=== PATIENT | female | born 1945 | race Caucasian/White ===

== ENCOUNTER 2016-06-27 21:46 | Inpatient (IN) | payer OTHER ==
[2016-06-27 21:57] VITALS: BMI 32.5
--- NOTE | 2016-06-27 22:29 | PDOC ---
History of Present Illness - General History Source: Patient, Old Records Exam Limitations: No Limitations - History of Present Illness Initial Comments: 06/28/16 00:32 The patient is a 71 year old female with past medical history of hypertension, hyperlipidemia, breast cancer (in remission), bowel obstruction, ovarian cysts s /p hysterectomy and hernia repair who presents to the ED for complaints of abdominal pain which began around 4pm yesterday afternoon. The patient locates the pain to her periumbilical area. She states that it is an intermittent cramping sensation. The patient also notes one episode of nonbloody, nonbilious vomiting before arrival to the ED. She reports normal bowel movements and the last bowel movement was this morning. The patient also notes that she experienced a similar episode of symptoms in 2014 where she was treated in the ED for. This episode was noted to be stomach spasms. The patient denies any recent illness, fever, chills, diarrhea, melena, hematochezia cough, shortness of breath, chest pain, or urinary symptoms. PCP: Carlo Garcia <Jane Baumann - Last Filed: 06/28/16 03:26> <Mario Marrero - Last Filed: 06/29/16 02:14> - General Chief Complaint: Pain Stated Complaint: ABD PAIN/VOMITING Time Seen by Provider: 06/27/16 22:28 Past History <Jane Baumann - Last Filed: 06/28/16 03:26> - Past Medical History Anemia: No Cancer: Yes (left breast, in remission) GI Disorders: Yes (HERNIAS, BLOCKAGE.) Hypercholesterolemia: Yes - Surgical History Abdominal Surgery: Yes - Immunization History Immunization Up to Date: Yes - Psycho/Social/Smoking Cessation Hx Anxiety: No Suicidal Ideation: No Smoking History: Never smoked Have you smoked in the past 12 months: No Information on smoking cessation initiated: No Hx Alcohol Use: No Drug/Substance Use Hx: No Substance Use Type: None <Mario Marrero - Last Filed: 06/29/16 02:14> - Past Medical History Allergies/Adverse Reactions: Allergies Allergy/AdvReac Type Severity Reaction Status Date / Time gemifloxacin mesylate Allergy Intermediate Rash Verified 03/02/15 13:13 [From Factive] peanut Allergy Intermediate numbness Verified 03/02/15 13:13 Penicillins Allergy Intermediate Rash Verified 03/02/15 13:13 Home Medications: Ambulatory Orders Anastrozole [Arimidex -] 1 mg PO DAILY 06/27/16 Aspirin [ASA -] 81 mg PO DAILY 06/27/16 Atorvastatin Ca [Lipitor] 40 mg PO HS 06/27/16 Calcium Carbonate/Vitamin D3 [Calcium 600 + Vit D Tablet] 1 each PO DAILY Cholecalciferol (Vitamin D3) [Vitamin D3] 1,000 mg PO DAILY 06/27/16 Multivit-Min/Iron/Folic/Lutein [Centrum Silver Women Tablet] 1 each PO DAILY Omeprazole Magnesium [Prilosec] 20.6 mg PO DAILY 06/27/16 Vit C/Vit E/Lutein/Min/[place]-3 [Ocuvite Softgel] 1 tab PO DAILY 06/27/16 Review of Systems - Review of Systems Able to Perform ROS?: Yes Comments:: 06/28/16 00:32 GENERAL/CONSTITUTIONAL: No fever or chills. No weakness. HEAD, EYES, EARS, NOSE AND THROAT: No change in vision. No ear pain or discharge. No sore throat. CARDIOVASCULAR: No chest pain or shortness of breath. RESPIRATORY: No cough, wheezing, or hemoptysis. GASTROINTESTINAL: Positive: abdominal pain, nausea, vomiting No diarrhea or constipation. GENITOURINARY: No dysuria, frequency, or change in urination. MUSCULOSKELETAL: No joint or muscle swelling or pain. No neck or back pain. SKIN: No rash NEUROLOGIC: No headache, vertigo, loss of consciousness, or change in strength/ sensation. ENDOCRINE: No increased thirst. No abnormal weight change. HEMATOLOGIC/LYMPHATIC: No anemia, easy bleeding, or history of blood clots. ALLERGIC/IMMUNOLOGIC: No hives or skin allergy. All Other Systems: Reviewed and Negative <Jane Baumann - Last Filed: 06/28/16 03:26> *Physical Exam - Vital Signs Last Vital Signs Temp Pulse Resp BP Pulse Ox 97.6 F 81 18 138/81 98 06/27/16 21:54 06/27/16 21:54 06/27/16 21:54 06/27/16 21:54 06/27/16 21:54 - Physical Exam Comments: 06/28/16 00:33 GENERAL: Awake, alert, and fully oriented, in no acute distress HEAD: No signs of trauma EYES: PERRLA, EOMI, sclera anicteric, conjunctiva clear ENT: Auricles normal inspection, hearing grossly normal, nares patent, oropharynx clear without exudates. Dry mucous membranes NECK: Normal ROM, supple, no lymphadenopathy, JVD, or masses LUNGS: Breath sounds equal, clear to auscultation bilaterally. No wheezes, and no crackles HEART: Regular rate and rhythm, normal S1 and S2, no murmurs, rubs or gallops ABDOMEN: Hypoactive bowel sounds. Mild distention, no significant discomfort, mild well healed surgical scar, no dehiscence. Soft, nontender. No guarding, no rebound. No masses EXTREMITIES: Normal range of motion, no edema. No clubbing or cyanosis. No cords, erythema, or tenderness NEUROLOGICAL: Cranial nerves II through XII grossly intact. Normal speech, normal gait SKIN: Warm, Dry, normal turgor, no rashes or lesions noted. <Jane Baumann - Last Filed: 06/28/16 03:26> - Vital Signs Last Vital Signs Temp Pulse Resp BP Pulse Ox 97.6 F 81 18 138/81 98 06/27/16 21:54 06/27/16 21:54 06/27/16 21:54 06/27/16 21:54 06/27/16 21:54 <Mario Marrero - Last Filed: 06/29/16 02:14> Heart Score/ECG Review - ECG Intrepretation Comment:: 06/28/16 00:54 ECG obtained at 23:53 normal sinus rhythm at 64 bpm, nonspecific st and t wave abnormality <Jane Baumann - Last Filed: 06/28/16 03:26> ED Treatment Course - LABORATORY CBC & Chemistry Diagram: 06/27/16 22:30 06/27/16 22:30 - ADDITIONAL ORDERS Additional order review: Laboratory Results 06/27/16 06/27/16 06/27/16 22:30 22:30 22:30 INR 1.08 Sodium 141 Potassium 4.2 Chloride 102 Carbon Dioxide 30 Anion Gap 9 BUN 11 Creatinine 1.0 Creat Clearance w eGFR 54.35 Random Glucose 166 H D Lactic Acid 1.951 Calcium 9.4 Phosphorus 3.6 Magnesium 2.1 Total Bilirubin 0.9 AST 21 ALT 24 Alkaline Phosphatase 65 Creatine Kinase 48 Troponin I < 0.02 B-Natriuretic Peptide 47.31 Total Protein 7.4 Albumin 4.0 Lipase 114 06/27/16 22:30 RBC 5.59 H MCV 65.5 L MCHC 32.1 RDW 16.5 H MPV 9.5 Neutrophils % 80.5 Lymphocytes % 12.0 D Monocytes % 5.7 Eosinophils % 1.0 D Basophils % 0.8 - RADIOLOGY Radiograph Interpretation: 06/28/16 02:12 EXAM: CT abdomen and pelvis with contrast IMAGES: 411 INDICATION: Abdominal pain DATE OF SERVICE: 2016-06-28 01:43:40.0 COMPARISON: none FINDINGS: Lung bases are clear other than mild dependent atelectasis. The visualized cardiac chambers are normal size and configuration. Normal liver, gallbladder, pancreas, spleen, adrenal glands and kidneys. There is a small bowel obstruction and moderate sized hilar hernia with small bowel dilated to 3.1 cm. A discreet transition point is not identified. No abscess or free air. No colonic inflammation.. The multiple abdominal surgical clips, which should be correlated with prior surgery. There is no aortic aneurysm. There is no significant retroperitoneal lymphadenopathy. Appendix not identified.. Status post hysterectomy l. Urinary bladder is unremarkable. There is no pelvic free fluid. No discrete pelvic lymphadenopathy is identified. IMPRESSION: Small bowel obstruction without abscess, free or discrete transition point. Postoperative adhesions are considered. THIS DOCUMENT HAS BEEN ELECTRONICALLY SIGNED Chanelle Goss - Medications Given in the ED: ED Medications Discontinued Medications Generic Name Dose Route Start Last Admin Trade Name Freq PRN Reason Stop Dose Admin Al Hydroxide/Mg Hydroxide 30 ml 06/27/16 23:42 06/28/16 00:30 Mylanta Suspension - PO 06/27/16 23:43 30 ml ONCE ONE Administration Famotidine/Sodium Chloride 50 mls @ 100 mls/hr 06/27/16 23:48 06/28/16 00:30 Pepcid 20 Mg Premixed Ivpb - IVPB 06/28/16 00:17 100 mls/hr ONCE ONE Administration Morphine Sulfate 4 mg 06/27/16 23:42 06/28/16 00:30 Morphine Injection - IVPUSH 06/27/16 23:43 4 mg ONCE ONE Administration Ondansetron HCl 4 mg 06/27/16 23:44 06/28/16 00:30 Zofran Injection IVPUSH 06/27/16 23:45 4 mg ONCE ONE Administration <Jane Baumann - Last Filed: 06/28/16 03:26> - LABORATORY CBC & Chemistry Diagram: 06/28/16 07:40 06/28/16 07:40 <Mario Marrero - Last Filed: 06/29/16 02:14> Medical Decision Making - Medical Decision Making 06/28/16 02:26 Phone call placed to adoption counselor surgery at 02:20. Call connected immediately and spoke to Dr. Herman and case was discussed. 02:30 Microblog sent to hospitalist. Call returned shortly and case was discussed. <Jane Baumann - Last Filed: 06/28/16 03:26> - Medical Decision Making 06/28/16 03:52 THis is a 71yo f with abdominal distension, abdominal pain and n/v. She has history of midline linear abdominal inscision secondary to resection of ovarian tumor remotely with multiple mesh/hernia and repair. She has symptoms concerning for SBO; She is unable to tolerate significant amount of PO contrast ; the CT shows evidence of SBO; she has been NPO throughout the encounter. She has been given fluids, antiemetics, analgesia. She is endorsed to the hospitalist and I have discussed the case with Dr. Cruz of surgery who agrees the patient should have NGT and will be evaluated in the am. She is comfortable. 06/29/16 02:11 <Mario Marrero - Last Filed: 06/29/16 02:14> *DC/Admit/Observation/Transfer - Attestations Scribe Attestion: 06/28/16 00:35 Documentation prepared by Jane Baumann, acting as medical librarian for Mario Marrero MD. <Jane Baumann - Last Filed: 06/28/16 03:26> - Discharge Dispostion Admit: Yes - Attestations Physician Attestion: 06/29/16 02:14 I, Dr. Mario Marrero MD, attest that this document has been prepared under my direction and personally reviewed by me in its entirety. I further attest, that it accurately reflects all work, treatment, procedures and medical decision -making performed by me. <Mario Marrero - Last Filed: 06/29/16 02:14> Diagnosis at time of Disposition: Small bowel obstruction - Discharge Dispostion Condition at time of disposition: Guarded - Referrals
[2016-06-27 23:14] LABS: BASOPHIL 0.8 % (0-2.0); MCHC 32.1 g/dl (32.0-36.0); MEAN CELL VOLUME 65.5 fl (80-96); MEAN PLT VOLUME 9.5 fl (7.5-11.1); NEUTROPHILS 80.5 % (42.8-82.8); PLATELET COUNT 203 K/MM3 (134-434); RDW 16.5 % (11.6-15.6); WHITE BLOOD COUNT 9.5 K/mm3 (4.0-10.0)
[2016-06-27 23:26] LABS: INR 1.08 (0.82-1.09); PROTHROMBIN TIME (PATIENT) 11.9 SEC (9.98-11.88)
[2016-06-27 23:41] LABS: ANION GAP 9 (8-16); CALCIUM 9.4 mg/dL (8.5-10.1); CO2 30 mmol/L (21-32); GLUCOSE,RANDOM 166 mg/dL (74-106); MAGNESIUM 2.1 mg/dL (1.8-2.4)
[2016-06-27] MEDS ORDERED: LOPERAMIDE HCL 1 MG/5 ML UNIT DOSE CUP PO ONE (23:42)
[2016-06-27] MEDS ORDERED: morphine CARPU-JECT 4 MG/1 ML DISP.SYRIN IVPUSH ONE (23:42)
[2016-06-27] MEDS ORDERED: MAG HYDROX/AL HYDROX/SIMETH 355 ML ORAL.SUSP PO ONE (23:42)
[2016-06-27 23:44] LABS: ALK PHOS 65 U/L (45-117); BILIRUBIN,TOTAL 0.9 mg/dL (0.2-1.0); PHOSPHOROUS 3.6 mg/dL (2.5-4.9); SGOT/AST 21 U/L (15-37); SGPT/ALT 24 U/L (12-78); TOT PROT 7.4 g/dl (6.4-8.2); TROPONIN I < 0.02 ng/ml (0.00-0.05)
[2016-06-27] MEDS ORDERED: ONDANSETRON 4 MG/2 ML VIAL IVPUSH ONE (23:44)
[2016-06-27] MEDS ORDERED: FAMOTIDINE 20 MG/50 ML IVPB 50 ML IVPB ONE (23:48)
[2016-06-28] MEDS ORDERED: morphine CARPU-JECT 4 MG/1 ML DISP.SYRIN ONE ×2 (00:17→02:56)
[2016-06-28] MEDS ORDERED: FAMOTIDINE 20 MG/50 ML IVPB 50 ML IVPB ONE (00:17)
[2016-06-28] MEDS ORDERED: MAG HYDROX/AL HYDROX/SIMETH 30 ML UNIT-DOSE CUP ONE (00:17)
[2016-06-28] MEDS ORDERED: ONDANSETRON 4 MG/2 ML VIAL ONE ×2 (00:17→02:56)
[2016-06-28] MEDS ORDERED: SODIUM CHLORIDE 0.9% 500 ML INFUS.BAG IV ONE (01:14)
[2016-06-28] MEDS: morphine CARPU-JECT 4 MG/1 ML DISP.SYRIN IVPUSH ONE ×2 (02:57→05:07)
[2016-06-28] MEDS: ONDANSETRON 4 MG/2 ML VIAL IVPUSH ONE ×2 (02:57→05:08)
--- NOTE | 2016-06-28 03:26 | PN ---
Teaching Attending Note Name of Resident: Jolie Curry ATTENDING PHYSICIAN STATEMENT I saw and evaluated the patient. I reviewed the resident's note and discussed the case with the resident. I agree with the resident's findings and plan as documented. SUBJECTIVE: 71 F c/o severe crampy epigastric pain and b/l lumbar pain. One episode of vomiting and gassy feel. PMH: Breast CA s/p radiation and chemotherapy, GERD and multiple abdominal surgeries. OBJECTIVE: CBCD WBC 9.5 K/mm3 (4.0-10.0) 06/27/16 22:30 RBC 5.59 M/mm3 (3.60-5.2) H 06/27/16 22:30 Hgb 11.8 GM/dL (10.7-15.3) 06/27/16 22:30 Hct 36.6 % (32.4-45.2) 06/27/16 22:30 MCV 65.5 fl (80-96) L 06/27/16 22:30 MCHC 32.1 g/dl (32.0-36.0) 06/27/16 22:30 RDW 16.5 % (11.6-15.6) H 06/27/16 22:30 Plt Count 203 K/MM3 (134-434) 06/27/16 22:30 MPV 9.5 fl (7.5-11.1) 06/27/16 22:30 CMP Sodium 141 mmol/L (136-145) 06/27/16 22:30 Potassium 4.2 mmol/L (3.5-5.1) 06/27/16 22:30 Chloride 102 mmol/L (98-107) 06/27/16 22:30 Carbon Dioxide 30 mmol/L (21-32) 06/27/16 22:30 Anion Gap 9 (8-16) 06/27/16 22:30 BUN 11 mg/dL (7-18) 06/27/16 22:30 Creatinine 1.0 mg/dL (0.55-1.02) 06/27/16 22:30 Creat Clearance w eGFR 54.35 (>60) 06/27/16 22:30 Random Glucose 166 mg/dL (74-106) H D 06/27/16 22:30 Calcium 9.4 mg/dL (8.5-10.1) 06/27/16 22:30 Total Bilirubin 0.9 mg/dL (0.2-1.0) 06/27/16 22:30 AST 21 U/L (15-37) 06/27/16 22:30 ALT 24 U/L (12-78) 06/27/16 22:30 Alkaline Phosphatase 65 U/L (45-117) 06/27/16 22:30 Total Protein 7.4 g/dl (6.4-8.2) 06/27/16 22:30 Albumin 4.0 g/dl (3.4-5.0) 06/27/16 22:30 CARDIAC ENZYMES Creatine Kinase 48 IU/L (26-192) 06/27/16 22:30 Troponin I < 0.02 ng/ml (0.00-0.05) 06/27/16 22:30 ASSESSMENT AND PLAN: SBO- NPO IVF Protonix IVPB NGT as needed
--- NOTE | 2016-06-28 04:19 | HP ---
CHIEF COMPLAINT: Severe abdominal pain PCP: Dr. Carlo Garcia ([address]) Dr. Rivera (Carriage Feeder) Dr. Slaughter (Breast surgeon) Dr. Dr. Parker (Radiologist) Dr. Mills (Oncologist) Dr. Seymour (Human Resource Advisor) Dr. Tim's office HISTORY OF PRESENT ILLNESS: Patient is a 71-year-old female presented with severe abdominal pain x 1 day. A/ c to the patient, she had severe abdominal pain that started yesterday at around 5pm while she was eating her dinner. It was located in the epigastric, left and right lumbar region, spasmodic type which comes and goes, 8/10 in intensity, non radiating, aggravated on sitting up and relieved on walking. Along with abdominal pain, also reports to have burping and could hear stomach gurgling. En route to the hospital, had one episode of vomiting, after which her burping and gurgling sound went away but the abdominal pain persisted. Had similar episode in 2009. Denies chest pain, sob, cough, palpitation, fever, chills, rigors or sweating. Had 1 large bowel movement with 3 small bowel movements today. No blood. Bladder habit normal. Appetite/Sleep normal prior to the illness. ER course was notable for: (1) Afebrile, No leukocytosis (2) CT abdomen: SBO without abscess, free or discrete transition point. Post operative adhesions are considered (3) Loperamide; IV morphine 8mg, Mylanta, IV NS 500mls, Famotidine IV Recent Travel: None PAST MEDICAL HISTORY: Breast cancer (s/p radiation, chemo, 2 surgery); GERD PAST SURGICAL HISTORY: 1999- August-20 Lbs Ovarian cyst removal, biopsy showed malignant cells Jan- Total hysterectomy 2000-hernia repair 2009- Dec- scar tissue repair 2012-Breast surgery remove (Cancer lump and 7 nodes) Resulting in 8 chemo + 35 radiation 2013- Removed [place] from left axilla August- Abdomen wall hernia Social History: Smoking: Denies Alcohol: Occasional Drugs: Denies Family History: Unknown Allergies gemifloxacin mesylate [From Factive] Allergy (Intermediate, Verified 03/02/15 13 :13) Rash peanut Allergy (Intermediate, Verified 03/02/15 13:13) numbness Penicillins Allergy (Intermediate, Verified 03/02/15 13:13) Rash HOME MEDICATIONS: Home Medications Medication Instructions Recorded Anastrozole [Arimidex -] 1 mg PO DAILY 06/27/16 Aspirin [ASA -] 81 mg PO DAILY 06/27/16 Atorvastatin Ca [Lipitor] 40 mg PO HS 06/27/16 Calcium Carbonate/Vitamin D3 1 each PO DAILY 06/27/16 [Calcium 600 + Vit D Tablet] Cholecalciferol (Vitamin D3) 1,000 mg PO DAILY 06/27/16 [Vitamin D3] Multivit-Min/Iron/Folic/Lutein 1 each PO DAILY 06/27/16 [Centrum Silver Women Tablet] Omeprazole Magnesium [Prilosec] 20.6 mg PO DAILY 06/27/16 Vit C/Vit E/Lutein/Min/[place]-3 1 tab PO DAILY 06/27/16 [Ocuvite Softgel] REVIEW OF SYSTEMS CONSTITUTIONAL: Absent: fever, chills, diaphoresis, generalized weakness, malaise, loss of appetite, weight change HEENT: Absent: rhinorrhea, nasal congestion, throat pain, throat swelling, difficulty swallowing, mouth swelling, ear pain, eye pain, visual changes CARDIOVASCULAR: Absent: chest pain, syncope, palpitations, irregular heart rate, lightheadedness , peripheral edema RESPIRATORY: Absent: cough, shortness of breath, dyspnea with exertion, orthopnea, wheezing, stridor, hemoptysis GASTROINTESTINAL: Present: abdominal pain, abdominal distension, nausea, vomiting, diarrhea Absent: constipation, melena, hematochezia GENITOURINARY: Absent: dysuria, frequency, urgency, hesitancy, hematuria, flank pain, genital pain MUSCULOSKELETAL: Absent: myalgia, arthralgia, joint swelling, back pain, neck pain SKIN: Absent: rash, itching, pallor HEMATOLOGIC/IMMUNOLOGIC: Absent: easy bleeding, easy bruising, lymphadenopathy, frequent infections ENDOCRINE: Absent: unexplained weight gain, unexplained weight loss, heat intolerance, cold intolerance NEUROLOGIC: Absent: headache, focal weakness or paresthesias, dizziness, unsteady gait, seizure, mental status changes, bladder or bowel incontinence PSYCHIATRIC: Absent: anxiety, depression, suicidal or homicidal ideation, hallucinations. PHYSICAL EXAMINATION GENERAL: Elderly female, lying comfortably in bed, Awake, alert, and fully oriented, in no acute distress. HEAD: Normal with no signs of trauma. EYES: EOM intact, no pallor or icterus EARS, NOSE, THROAT: Ears normal. Moist mucous membranes. NECK: Supple Axilla: Right: Approx. 4 x 5cm soft tissue mass, soft, fluctuant, no tenderness on palpation Left: surgical scar lizzy LUNGS: Breath sounds equal, clear to auscultation bilaterally. No wheezes, and no crackles. No accessory muscle use. HEART: Regular rate and rhythm, normal S1 and S2 without murmur, rub or gallop. ABDOMEN: Surgical scar luna +, Soft, nontender, not distended, normoactive bowel sounds, no guarding, no rebound, no masses. No hepatomegaly or splenomegaly. MUSCULOSKELETAL: Normal range of motion at all joints. No bony deformities or tenderness. No CVA tenderness. UPPER EXTREMITIES: 2+ pulses, warm, well-perfused. No cyanosis. No clubbing. No peripheral edema. LOWER EXTREMITIES: 2+ pulses, warm, well-perfused. No calf tenderness. No peripheral edema. NEUROLOGICAL: Cranial nerves II-XII intact. Normal speech.Gait not observed. PSYCHIATRIC: Cooperative. Good eye contact. Appropriate mood and affect. SKIN: Warm, dry, normal turgor, no rashes or lesions noted, normal capillary refill. ASSESSMENT/PLAN: Patient is a 71-year-old female with siginificant past medical history of Hyperlipidemia, multiple abdominal surgery; Breast cancer (s/p radiation and chemo) presented with severe abdominal pain x 1 day. # Small bowel obstruction without abscess Patient presented with severe abdominal pain with a h/o multiple abdominal surgery CT scan of abdomen: SBO without abscess, free or discrete transition point. Post operative adhesions are considered In the ED, patient received Loperamide; IV morphine 8mg, Mylanta, IV NS 500mls, Famotidine IV Admitted in Med-Surg NPO IV Fluids NG tube Pain management PRN. Patient hasn't complained of abdominal pain since 2 hours. Afebrile, No leukocytosis-hence no antibiotics given at this time ED physician spoke with Dr. Herman. # Breast cancer (s/p radiation and chemo) Hold Anastrazole # Hyperlipidemia Aspirin and Statin on hold # FEN IV NS @ 83ml/shr Electrolytes to be repeated tomorrow NPO # Prophylaxis For DVT- On SCDs, no anticoagulation at this time since patient is ambulating and patient might need surgery at any time. For GI: Protonix IV # Code status: Full Code # Dispo: Admitted in Med-Surg. Duration of stay unknown. Illness, Investigation and Plan of care explained to the patient. She verbalized understanding. Case seen and discussed with Dr. Ramachandran. Visit type - Emergency Visit Emergency Visit: Yes ED Registration Date: 06/29/16 Care time: The patient presented to the Emergency Department on the above date and was hospitalized for further evaluation of their emergent condition. - New Patient This patient is new to me today: Yes Date on this admission: 06/29/16 - Critical Care Critical Care patient: No
[2016-06-28] MEDS ORDERED: ONDANSETRON 4 MG/2 ML VIAL IVPB PRN (04:26)
[2016-06-28] MEDS: SODIUM CHLORIDE 1,000 ML IV SCH ×2 (05:19→16:28)
[2016-06-28 07:07] LABS: PLATELET ESTIMATE ADEQUATE (NORMAL)
[2016-06-28 07:08] LABS: ANISOCYTOSIS 2+; MICROCYTOSIS 1+; POLYCHROMASIA 1+
[2016-06-28] MEDS ORDERED: morphine CARPU-JECT 2 MG/1 ML DISP.SYRIN IVPUSH PRN (09:00)
[2016-06-28] MEDS ORDERED: PT OWN MED DRAWER 7, Y5N ONE (10:43)
[2016-06-28] MEDS: PANTOPRAZOLE SODIUM 100 ML IVPB SCH (10:44)
[2016-06-28 11:14] LABS: BASOPHIL 0.8 % (0-2.0); EOSINOPHIL 1.2 % (0-4.5); MCH 21.2 pg (25.7-33.7); MCHC 31.7 g/dl (32.0-36.0); MEAN CELL VOLUME 66.8 fl (80-96); MEAN PLT VOLUME 9.8 fl (7.5-11.1); NEUTROPHILS 65.1 % (42.8-82.8); PLATELET COUNT 179 K/MM3 (134-434); RDW 16.4 % (11.6-15.6); WHITE BLOOD COUNT 7.5 K/mm3 (4.0-10.0)
[2016-06-28 11:27] LABS: INR 1.09 (0.82-1.09)
[2016-06-28 11:29] LABS: ACTIVATED PTT 31.6 SECONDS (26.9-34.4)
[2016-06-28 11:43] LABS: ALBUMIN 3.6 g/dl (3.4-5.0); ANION GAP 11 (8-16); BILIRUBIN,TOTAL 0.8 mg/dL (0.2-1.0); CALCIUM 8.7 mg/dL (8.5-10.1); CO2 28 mmol/L (21-32); CREATININE 0.8 mg/dL (0.55-1.02); GLUCOSE,RANDOM 95 mg/dL (74-106); SGOT/AST 20 U/L (15-37); SGPT/ALT 23 U/L (12-78); TOT PROT 6.8 g/dl (6.4-8.2)
[2016-06-28 11:44] LABS: ALK PHOS 61 U/L (45-117)
[2016-06-28] MEDS ORDERED: KETOROLAC TROMETHAMINE 15 MG/ML VIAL IVPUSH ONE (14:00)
--- NOTE | 2016-06-28 16:53 | PN ---
Physical Exam: SUBJECTIVE: Patient seen and examined. She reports feeling well. Denies abdominal pain. Having a headache this morning 05/23 OBJECTIVE: Vital Signs Period Temp Pulse Resp BP Sys/Marks Pulse Ox Last 24 Hr 97.0 F-98.8 F 73-86 16-20 110-129/66-75 97-98 GENERAL: The patient is awake, alert, and fully oriented, in no acute distress. HEAD: Normal with no signs of trauma. EYES: PERRL, extraocular movements intact, sclera anicteric, conjunctiva clear. No ptosis. ENT: Ears normal, nares patent, oropharynx clear without exudates, moist mucous membranes. NECK: Trachea midline, full range of motion, supple. LUNGS: Breath sounds equal, clear to auscultation bilaterally, no wheezes, no crackles, no accessory muscle use. HEART: Regular rate and rhythm ABDOMEN: Soft, nontender, nondistended, hypoactive bowel sounds, no guarding EXTREMITIES: 2+ pulses, warm, well-perfused, no edema. NEUROLOGICAL: Normal speech, gait not observed. PSYCH: Normal mood, normal affect. SKIN: Warm, dry, normal turgor, no rashes or lesions noted Laboratory Results - last 24 hr 06/28/16 06/28/16 06/28/16 07:40 07:40 07:40 WBC 7.5 RBC 5.13 Hgb 10.9 Hct 34.2 MCV 66.8 L MCHC 31.7 L RDW 16.4 H Plt Count 179 MPV 9.8 Neutrophils % 65.1 Lymphocytes % 23.9 D Monocytes % 9.0 Eosinophils % 1.2 Basophils % 0.8 INR 1.09 PTT (Actin FS) 31.6 Sodium 142 Potassium 4.2 Chloride 103 Carbon Dioxide 28 Anion Gap 11 BUN 11 Creatinine 0.8 Creat Clearance w eGFR > 60 Random Glucose 95 D Calcium 8.7 Total Bilirubin 0.8 AST 20 ALT 23 Alkaline Phosphatase 61 Total Protein 6.8 Albumin 3.6 Active Medications Generic Name Dose Route Start Last Admin Trade Name Freq PRN Reason Stop Dose Admin Sodium Chloride 1,000 mls @ 100 mls/hr 06/28/16 04:30 06/28/16 16:28 Normal Saline - IV 100 mls/hr ASDIR ART Administration Pantoprazole Sodium 100 mls @ 200 mls/hr 06/28/16 10:00 06/28/16 10:44 Protonix 40mg Ivpb (Pre-Docked) IVPB 200 mls/hr DAILY ART Administration Morphine Sulfate 2 mg 06/28/16 09:00 Morphine Injection - IVPUSH Q4H PRN PAIN Ondansetron HCl 4 mg 06/28/16 04:26 Zofran Injection IVPB Q6H PRN NAUSEA ASSESSMENT/PLAN: Patient is a 71 year old female with a significant past medical history of ovarian cancer, incisional hernia with mesh and recurrent incisional hernia. She presented to the ED on 06/28/2016 with abdominal pain, nausea and vomiting. She is without NGT at this time and is not passing any pass, but is burping. She denies chest pain, SOB, coughing, palpitations, fever or chills. She is reported to have had one large bowel movement and 3 small bowel movements today. In ER she was noted to be afebrile, no leukocytosis and was given Loperamide, morphine, Mylanta, IVF and Pepcid. Imaging: CT abdomen 06/28/2016: small bowel obstruction without abscess. Chest xray: no acute pathology GI: Small bowel obstruction - acute Assessment/Plan: Patient with history of multiple abdominal surgery, and hernia repairs Keep NPO, NGT if vomiting occurs, now without NGT as she is not vomiting and her abdomen is not distended Pain management with Morphine 2mg prn Protonix 40mg IV NS @100cc/hr Bowel rest WBC normal, afebrile, no IV antibiotics administered Hold all PO mieds Surgery consulted F.E.N. Fluids: NS @ 100/cc/hr Electrolytes: within normal limits Nutrition: NPO - advance per surgery Disposition: Requires inpatient hospitalization. Full Code. Visit type - Emergency Visit Emergency Visit: Yes ED Registration Date: 06/28/16 Care time: The patient presented to the Emergency Department on the above date and was hospitalized for further evaluation of their emergent condition. - New Patient This patient is new to me today: Yes Date on this admission: 06/28/16 - Critical Care Critical Care patient: No - Discharge Referral Referred to [facility] Med P.C.: No
--- NOTE | 2016-06-28 18:36 | PN ---
Progress Note (short form) - Note Progress Note: surgery pt seen and examined. 71 obese female, complex surgical history including removing 20lb ovarian ca, kiko, incisional hernia with mesh, recurrent incisional hernia with mesh, presents with resolved abd pain and vomit x 1. Pt had Ct showing incisional hernia below umbilicus containing small bowel and likely psbo. Pt was admitted without ngt and currently feels well but is burping without flatus. On exam abd is soft with likely chronically incarcerated incisional hernia below and to the right of umbilicus. Plan- likely psbo from recurrent complex incisional hernia. Pt would benefit from elective major hernia surgery with component separation, myofascial release , and abd wall reconstruction. Pt currently has no evidence of bowel compromise and I suspect it is chronically incarcerated. Recommend attempt at clear liquids. If able to tolerate can go home tomorrow on liquid diet with plan to follow with Dr. Helms to be evaluated for elective hernia repair. If unable to tolerate would place ngt and plan for more urgen/ less definitive repair.
[2016-06-29] MEDS: SODIUM CHLORIDE 1,000 ML IV SCH ×2 (04:30→05:55)
[2016-06-29] MEDS: PANTOPRAZOLE SODIUM 100 ML IVPB SCH (10:38)
--- NOTE | 2016-06-29 11:24 | EKG ---
Test Reason : Blood Pressure : / mmHG Vent. Rate : 064 BPM Atrial Rate : 064 BPM P-R Int : 152 ms QRS Dur : 074 ms QT Int : 432 ms P-R-T Axes : 049 014 061 degrees QTc Int : 445 ms NORMAL SINUS RHYTHM NONSPECIFIC ST AND T WAVE ABNORMALITY ABNORMAL ECG WHEN COMPARED WITH ECG OF 02-MAR-2015 15:55, NO SIGNIFICANT CHANGE WAS FOUND Confirmed by DANIELLE NAVARRO MD ([id number]) on 06/29/2016 11:23:49 AM Referred By: Confirmed By:DANIELLE NAVARRO MD
--- NOTE | 2016-06-29 11:29 | DS ---
Physical Exam: SUBJECTIVE: Patient seen and examined. She denies any abdominal pain, nausea or vomiting Had small bowel movement last night OBJECTIVE: + bowel sounds denies pain light palpation of her abdomen + small bm Vital Signs Period Temp Pulse Resp BP Sys/Marks Pulse Ox Last 24 Hr 98.6 F 87 20 124/77 PHYSICAL EXAM GENERAL: The patient is awake, alert, and fully oriented, in no acute distress. HEAD: Normal with no signs of trauma. EYES: PERRL, extraocular movements intact, sclera anicteric, conjunctiva clear. No ptosis. ENT: Ears normal, nares patent, oropharynx clear without exudates, moist mucous membranes. NECK: Trachea midline, full range of motion, supple. LUNGS: Breath sounds equal, clear to auscultation bilaterally, no wheezes, no crackles, no accessory muscle use. HEART: Regular rate and rhythm ABDOMEN: Soft, nontender, nondistended, hypoactive bowel sounds, no guarding EXTREMITIES: 2+ pulses, warm, well-perfused, no edema. NEUROLOGICAL: Normal speech, gait not observed. PSYCH: Normal mood, normal affect. SKIN: Warm, dry, normal turgor, no rashes or lesions noted LABS HOSPITAL COURSE: Date of Admission:06/29/16 Date of Discharge: 06/29/16 Patient is a 71 year old female with a significant past medical history of ovarian cancer, incisional hernia with mesh and recurrent incisional hernia. She presented to the ED on 06/28/2016 with abdominal pain, nausea and vomiting. She is without NGT at this time and is not passing any pass, but is burping. She denies chest pain, SOB, coughing, palpitations, fever or chills. She is reported to have had one large bowel movement and 3 small bowel movements today. In ER she was noted to be afebrile, no leukocytosis and was given Loperamide, morphine, Mylanta, IVF and Pepcid. Imaging: CT abdomen 06/28/2016: small bowel obstruction without abscess. Chest xray: no acute pathology GI: Small bowel obstruction - improving/resolving Assessment/Plan: Patient with history of multiple abdominal surgery, and hernia repairs Tolerated clear liquid diet overnight and again this morning + bowel sounds, + small bm, denies abdominal pain/nausea or vomiting to continue clear liquid diet and follow up with Dr. Helms (GI) for possible hernia repair F.E.N. Fluids: tolerating PO Clear liquid diet on discharge Disposition: Discharge home Full Code. Minutes to complete discharge: 45 Discharge Summary Reason For Visit: SMALL BOWEL OBSTRUCTION, ABDOMINAL PAIN Current Active Problems Small bowel obstruction (Acute) Condition: Improved - Instructions Diet, Activity, Other Instructions: Please follow up with Dr. Helms to be evaluated for elective hernia repair. Continue clear liquid diet until you speak with Dr. Helms on advancing your diet. Dr. Sharee Helms [employer] [address] [facility] [address] [place] [address] Clear liquid diet consists of: Flory alea Water (plain, carbonated or flavored) Clear Fruit juices without pulp such as apple juice or white grape Tea or coffee without milk or cream Sports drinks Clear fat free broth Hard candy such as lemon drops or peppermint Ice pops without milk, or seeds/nuts Clear broth: chicken, vegetable or beef Continue clear liquid diet as directed by Dr. Herman, until directed otherwise by Dr. Helms. Please return to the ER with any new or worsening symptoms. Referrals: Carlo Garcia MD, MD [Primary Care Provider] - Mario Herman MD [Staff Physician] - Disposition: HOME - Home Medications Comprehensive Discharge Medication List: Ambulatory Orders Anastrozole [Arimidex -] 1 mg PO DAILY 06/27/16 Aspirin [ASA -] 81 mg PO DAILY 06/27/16 Atorvastatin Ca [Lipitor] 40 mg PO HS 06/27/16 Calcium Carbonate/Vitamin D3 [Calcium 600 + Vit D Tablet] 1 each PO DAILY Cholecalciferol (Vitamin D3) [Vitamin D3] 1,000 mg PO DAILY 06/27/16 Multivit-Min/Iron/Folic/Lutein [Centrum Silver Women Tablet] 1 each PO DAILY Omeprazole Magnesium [Prilosec] 20.6 mg PO DAILY 06/27/16 Vit C/Vit E/Lutein/Min/[place]-3 [Ocuvite Softgel] 1 tab PO DAILY 06/27/16 This patient is new to me today: No Emergency Visit: Yes ED Registration Date: 06/29/16 Care time: The patient presented to the Emergency Department on the above date and was hospitalized for further evaluation of their emergent condition. Critical Care patient: No - Discharge Referral Referred to [facility] Med P.C.: No
--- NOTE | 2016-06-29 14:07 | CONS ---
DATE OF CONSULTATION: 06/27/2016 REASON FOR CONSULTATION: Small bowel obstruction. This is an emergency room consultation at the request of the emergency room physician. BRIEF HISTORY: This is a 71-year-old female with a known, complex surgical history who presented to the [facility] Emergency Room with an episode of abdominal pain, nausea, and vomiting. She had a CT scan of her abdomen and pelvis, which was consistent with small bowel obstruction and she was admitted to the hospital for likely adhesive small bowel obstruction. This was the emergency room doctor's admitting diagnosis and a surgical consultation was requested. The patient did not have a nasogastric tube placed and her laboratories were unremarkable. She states, since admission early this morning, she currently is pain-free. She does continue to belch and she has not had flatus. PAST MEDICAL HISTORY: Breast cancer, ovarian cancer, hyperlipidemia. HOME MEDICATIONS: Arimidex, aspirin, Lipitor, multivitamin. She has allergies to PENICILLIN. PAST SURGICAL HISTORY: Complex; it includes a removal of a 20-pound ovarian cyst, turned out to have ovarian cancer within it. After that operation, she underwent a total abdominal hysterectomy. She then developed an incisional hernia, which was repaired with mesh. She then developed a recurrent incisional hernia that was also repaired with mesh. She also had a left breast lumpectomy for breast cancer. FAMILY HISTORY: Negative for malignancy in the immediate family. REVIEW OF SYSTEMS: General: She denies fatigue or malaise. Cardiac: She denies chest pain or palpitations. Respiratory: She denies shortness of breath or wheeze. Gastrointestinal: As in HPI. Denies diarrhea, denies blood in her stool, denies recent weight loss. She states she has never had a bowel obstruction before. Genitourinary: She denies dysuria. Musculoskeletal: She denies joint pain, joint swelling. Psychiatric: She denies anxiety, depression, hearing voices. PHYSICAL EXAMINATION: General: This is an obese 71-year-old female in no distress. Vital Signs: Afebrile. Her vital signs are stable. HEENT: Head normocephalic. Sclerae anicteric. Neck: Supple. Chest: Clear. Abdomen: Soft. There is minimal distention. She has a midline scar from stem to servin. She has an incarcerated incisional hernia below her umbilicus with more prominence of the sac to the right side. There is minimal tenderness in this location. The remainder of her abdominal examination is benign. Extremities: Trace edema. REVIEW OF LABORATORY: Her white blood cell count is 7.5 without a shift. Her chemistries are unremarkable. REVIEW OF CT SCAN: She has an incisional hernia located below the umbilicus containing a loop of small bowel that is likely serving as a source of a partial bowel obstruction. ASSESSMENT: This is a 71-year-old female with a likely chronically incarcerated, recurrent incisional hernia that likely is contributing to her partial small bowel obstruction. At this point, ideally, the patient has a complex hernia that would benefit from a more definitive repair involving component separation, myofascial release, and abdominal wall reconstruction. Of course, any repair would benefit from mesh. Patient, ideally, would have this repair done electively by a hernia specialist. At this point, I suspect that this is chronically incarcerated and the patient, likely, may be able to tolerate a liquid diet. Recommend giving a trial of liquids. If she is able to tolerate, then she could be discharged home on a liquid diet with followup with a hernia surgeon. Dr. Seb Helms, , would be able to evaluate her for this procedure. If she is unable to tolerate liquids, would recommend placing a nasogastric tube. At that point, I would likely move in the direction of a less definitive, but more urgent localized repair. I discussed this with the patient in detail as well as her [id number] by telephone and they are both in agreement and happy with the plan. Currently, the patient has no evidence of bowel compromise and is safe to continue with conservative measures. DO ROSIBEL HENLEY/[id number]
[2016-06-29 14:19] VITALS: BP 132/84; PULSE 85; TEMP 98.4
== END 2016-06-29 14:44 | disposition home or self-care (01) | DRG 390 ==
LOC: SUPCPDRO 21:46 → JER 21:46 → JERBED 06-28 03:50 → UNDOADMIN 06-28 03:50 → JERBED 06-28 05:41 → J5S 06-28 05:41 → JERBED 06-29 02:14
PROVIDERS: ADMIT Internal Medicine; ATTEND Nurse Practitioner Family
DX: K56.60 Unspecified intestinal obstruction (principal); E78.5 Hyperlipidemia, unspecified; Z85.3 Personal history of malignant neoplasm of breast; I10 Essential (primary) hypertension
CPT/HCPCS: 36415; 71010-TC; 74177-TC; 80053; 81003; 82550; 83605; 83690; 83735; 83880; 84100; 84484; 85025; 85610; 85730; 86850; 86900; 86901; 93005; 93010; 99284-25

== ENCOUNTER 2016-08-13 06:12 | Inpatient (IN) | payer OTHER ==
--- NOTE | 2016-08-05 15:38 | HP ---
DATE OF ADMISSION: DATE OF DICTATION: 07/01/2016 DATE OF SURGERY: 08/13/2016 REASON FOR ADMISSION: Chronically incarcerated complex ventral incisional hernia. BRIEF HISTORY: This is a 71-year-old female who a week ago was admitted to [facility] with a small bowel obstruction. The patient was managed medically and ultimately went on to resolve. During that hospitalization, she underwent a CT scan that demonstrated findings consistent with a partial bowel obstruction, the etiology is thought most likely to be adhesive, however an incarcerated hernia causing this cannot be entirely ruled out. Patient was evaluated by my partner, Dr. Herman, at that time, it is his feeling that it was most likely related to an incarcerated hernia. Patient has been discharged and has been doing well after discharge. She has had no nausea, no vomiting. She is passing gas and moving her bowels. PAST MEDICAL HISTORY: Significant for hypertension. She denies coronary artery disease and diabetes. Patient has a history of ovarian carcinoma as well as a history of breast carcinoma. MEDICATION: Avastatin, tamoxifen, omeprazole, baby aspirin, and vitamins. PAST SURGICAL HISTORY: Patient has had a laparotomy from xiphoid to pubis for a large ovarian cyst; 2 days following that surgery, she was taken back for a ROBERT/BSO. In January of that year (1999) patient had hernia repair and mesh placed. In 2000, she had a re-laparotomy and repair of a hernia again. In 2009, the patient had a small bowel obstruction and underwent removal of the mesh and mesh hernia repair. In 2012, the patient has had surgery for left breast cancer. She is status post chemotherapy and 35 radiation treatments. SOCIAL HISTORY: She does not smoke or drink. PHYSICAL EXAMINATION: Lungs: Clear. Heart: Regular rhythm. Abdomen: Soft. Nontender. Nondistended. She has a midline scar from xiphoid to pubis. She has a poorly healed umbilicus. She has a very large chronically incarcerated ventral incisional hernia in the lower abdomen. There is also multiple defects noted in the midline of the upper abdomen as well. IMPRESSION/PLAN: Chronically incarcerated large complex ventral incisional hernia: This is a 71-year-old female who has undergone a laparotomy approximately 17 years ago for an ovarian cancer. She then underwent 2 to 3 ventral incisional hernia repairs, 2 of which have required mesh. She now presents with recurrence and history of bowel obstruction. I spent a long time (approximately an hour) educating this patient as well as her niece regarding the etiology of small bowel obstruction and in this particular patient's case, the etiology is not entirely clear and can be determined (between adhesive disease within the hernia versus adhesive disease and the hernia being the actual cause of the bowel obstruction). In any event, the patient understands her problem and still wants to undergo repair of her complex chronically incarcerated recurrent ventral incisional hernia. I will attempt to repair this hernia in a retrorectus fashion with a total abdominal reconstruction. We have discussed the pros and cons of leaving the old mesh in place, and at this point I see no indication for removal of the old mesh. Patient understands very clearly that if a piece of bowel is injured during the time of surgery, she will undergo repair with probably temporary mesh and nonpermanent mesh, which, thereby increasing her recurrence rates. Patient understands risks and still wants to proceed. Layton STEELE [id number] cc: Dr. Carlo Garcia
[2016-08-11 18:51] VITALS: BMI 32.2
[2016-08-13] MEDS ORDERED: LEVOFLOXACIN 500 MG IVPB 100 ML IVPB ONE (07:12)
[2016-08-13] MEDS ORDERED: BUPIVACAINE HCL/PF 0.25% (2.5MG/ML) 10 ML VIAL ONE (07:35)
[2016-08-13] MEDS ORDERED: MIDAZOLAM HCL 2 MG/2 ML SINGLE DOSE VIAL ONE ×2 (07:36)
[2016-08-13] MEDS ORDERED: DEXTROSE 50%-WATER 50 ML DISP.SYRIN ONE (07:36)
[2016-08-13] MEDS ORDERED: DEXAMETHASONE SOD PHOSPHATE 4 MG/1 ML VIAL ONE ×4 (07:36→10:20)
[2016-08-13] MEDS ORDERED: SUCCINYLCHOLINE CHLORIDE 200 MG/10 ML VIAL ONE (08:02)
[2016-08-13] MEDS ORDERED: PROPOFOL 20 ML ONE ×3 (08:02)
[2016-08-13] MEDS ORDERED: HYDROmorphone HCL/PF 1 MG/ML VIAL (FOR PYXIS CHARGING ONLY) ONE ×2 (08:03→08:58)
[2016-08-13] MEDS ORDERED: ROCURONIUM BROMIDE 50 MG/5 ML VIAL ONE ×2 (08:03→08:38)
[2016-08-13] MEDS ORDERED: LEVOFLOXACIN 500 MG PREMIX BAG IVPB ONE (08:10)
[2016-08-13] MEDS ORDERED: DESFLURANE GAS 240 ML BOTTLE IH ONE (08:32)
[2016-08-13] MEDS ORDERED: ONDANSETRON 4 MG/2 ML VIAL ONE ×2 (08:43→10:20)
[2016-08-13] MEDS ORDERED: ACETAMINOPHEN INJECTION 100 ML IVPB ONE (10:18)
[2016-08-13] MEDS ORDERED: NEOSTIGMINE METHYLSULFATE 0.5 MG/ML - 10 ML MDV ONE (10:20)
[2016-08-13] MEDS ORDERED: GLYCOPYRROLATE 0.2 MG/1 ML VIAL ONE (10:20)
[2016-08-13] MEDS ORDERED: PHENYLEPHRINE HCL 10 MG/1 ML SINGLE DOSE VIAL ONE (10:30)
[2016-08-13] MEDS ORDERED: ONDANSETRON 4 MG/2 ML VIAL IVPUSH PRN (11:21)
[2016-08-13] MEDS ORDERED: oxyCODONE HCL 5 MG TABLET PO PRN ×2 (11:24→12:03)
[2016-08-13] MEDS ORDERED: LACTATED RINGERS SOLUTION 1,000 ML IV SCH (11:30)
[2016-08-13 11:54] LABS: MCH 21.2 pg (25.7-33.7); MCHC 31.9 g/dl (32.0-36.0); MEAN CELL VOLUME 66.6 fl (80-96); MEAN PLT VOLUME 9.1 fl (7.5-11.1); PLATELET COUNT 164 K/MM3 (134-434); RDW 16.2 % (11.6-15.6); WHITE BLOOD COUNT 8.2 K/mm3 (4.0-10.0)
[2016-08-13] MEDS ORDERED: morphine CARPU-JECT 4 MG/1 ML DISP.SYRIN IVPB PRN (12:03)
[2016-08-13] MEDS ORDERED: ACETAMINOPHEN 325 MG TABLET (FP) PO PRN (12:03)
[2016-08-13] MEDS ORDERED: ONDANSETRON 4 MG/2 ML VIAL IVPB PRN (12:03)
[2016-08-13] MEDS: D5-1/2NS+20 MEQ KCL - 1,000 ML IV SCH ×2 (12:20→21:37)
[2016-08-13 13:35] LABS: HYPOCHROMIA 2+
[2016-08-13 13:36] LABS: OVALOCYTES 2+; TARGET CELLS 2+; TEAR DROP CELLS 1+
[2016-08-13] MEDS: traMADol HCL 50 MG TABLET PO SCH ×3 (14:35→23:33)
[2016-08-13] MEDS: ACETAMINOPHEN 1000 MG/100 ML VIAL (NON FORMULARY) IVPB PRN (18:28)
[2016-08-13] MEDS ORDERED: ATORVASTATIN CA 40 MG TABLET (FP) PO SCH (22:00)
[2016-08-14] MEDS: ACETAMINOPHEN 1000 MG/100 ML VIAL (NON FORMULARY) IVPB PRN (00:38)
[2016-08-14] MEDS: traMADol HCL 50 MG TABLET PO SCH ×2 (05:45→12:43)
[2016-08-14] MEDS: D5-1/2NS+20 MEQ KCL - 1,000 ML IV SCH (06:27)
[2016-08-14] MEDS ORDERED: PT OWN MED DRAWER 7, Y5N ONE (09:36)
[2016-08-14] MEDS: ANASTROZOLE 1 MG TABLET PO SCH ×2 (09:49→09:53)
[2016-08-14] MEDS ORDERED: ENOXAPARIN NA (PORCINE) 40 MG/0.4 ML DISP.SYRIN SQ SCH (10:00)
[2016-08-14] MEDS ORDERED: PANTOPRAZOLE SODIUM 100 ML IVPB SCH (10:00)
--- NOTE | 2016-08-14 11:29 | OP ---
DATE OF OPERATION: 08/13/2016 PREOPERATIVE DIAGNOSIS:: Large, complex chronically incarcerated recurrent ventral incisional hernia POSTOPERATIVE DIAGNOSIS: Large, complex chronically incarcerated recurrent ventral incisional hernia MEDICAL CO-MORBIDITIES: Ovarian cancer, anemia, controlled hypertension, borderline diabetes. PROCEDURE: 1. Open bilateral component separation. 2. Total abdominal reconstruction. 3. Repair of recurrent incisional ventral hernia (incarcerated). 4. Excision of 235 sq cm devitalized tissue. 5. A 30-cm intermediate wound closure. SURGEON: Seb Helms MD OCCUPATIONAL HEALTH NURSE: Fran Cheema MD ANESTHESIA: Anita Maddox MD (general) ESTIMATED BLOOD LOSS: Minimal SPECIMEN: Devitalized tissue INDICATION FOR PROCEDURE: This is a 71-year-old female who initially underwent an exploratory laparotomy for ovarian cancer. Following this operation, she then had an incisional hernia that was repaired with mesh. She was then taken to the operating room following that with bowel obstructions and repair of other hernias x2 with mesh. She now presents with a recurrent chronically incarcerated large complex ventral incisional hernia. The patient's scar is from xiphoid to pubis. DESCRIPTION OF PROCEDURE: Patient identified and appropriately positioned on operating room table. After placement of general anesthesia, the abdomen was prepped and draped in the usual sterile fashion with ChloraPrep. The previous devitalized, thinned-out skin was excised. Approximately 235 sq cm in total was removed. Next, the 2 flaps were then subsequently created down to the level of the fascia. This was done with the cautery and blunt dissection. The flaps were taken out to the mid-clavicular line on either side. This was the most lateral extent of her hernia on the left and right side. Next, the rectus muscle near the midline was identified on the patient's right side. The fascia overlying the rectus was then scored, and the rectus muscle identified and lifted anteriorly. The posterior rectus face was then subsequently developed with cautery and blunt dissection. There were points where it was completely scarred, and portions of the rectus muscle were divided left on the posterior rectus sheath. The patient's previous mesh repair was on the deep side to this dissection. This dissection was carried the length of the incision , essentially xiphoid to the level of the pubis. Out laterally where the hernia was, the fascia where it had retracted to the lateral abdominal wall was divided at the level where the rectus fascia had retracted to. Medial to this junction was the old mesh. Once this space was completely developed, the myofascial separation then ensued, the transversus from the obliques and the rectus juncture. This was done at the level initially just inferior to the costal margin, and this was then subsequently taken down to the level of the anterior iliac crest, and at this level it was then developed bluntly and crossed medially to the pubis. The bladder was left inferior. Superiorly, the fascial plain dividing the obliques was at the chest wall so that the mesh could be left above the costal margin anterior to the chest wall. A similar technique was used on the patient's left side as well, and once the retrorectus space was completely freed from the costal margin down to the anterior iliac crest, the myofascial separation ensued, dividing the transversus fascia from the junction of the rectus and the obliques. This allowed mobilization out laterally beyond the anterior iliac crest. The defect was measured, and this patient had such a generous defect that a large piece of 35 x 35 Phasix was used as well as a large 30 x 30 piece of Versatex mesh. The 2 meshes were sewn together with interrupted 3-0 Vicryl sutures. The mesh was then placed into the retrorectus space and fanned out as laterally beyond the separation junction and into the lateral abdominal wall inferiorly beyond the pubis and superiorly onto the costal margin. Once the mesh was placed, sponge and needle counts were then performed prior to anchoring the mesh. The sponge and instrument counts at this point were correct. The mesh was then anchored with the Covidien ReliaTack (absorbable). All anchors were placed under direct counter palpation. The mesh itself was then irrigated , the operative field examined and noted to be hemostatic. The midline fascia was then reapproximated with a No. 1 running PDS suture. Next, the skin was then reapproximated in layers, the dermis closed with interrupted inverted 2-0 Chromic sutures, and the skin closed itself with karl followed by Dermabond at the conclusion of this, and 2 JPs were placed in the subcutaneous tissue and brought through a separate stab incision. At the conclusion of this case, all sponge and needle counts were correct. The attestation brief op note hand-written on the pre-printed form. [place] [employer] will be cleared prior to giving any narcotics. Layton STEELE CHI/[id number] cc: Carlo Garcia MD MTDD
--- NOTE | 2016-08-14 13:22 | DS ---
DATE OF ADMISSION: 08/13/2016 DATE OF DISCHARGE: 08/14/2016 ADMITTING DIAGNOSES: Complex incarcerated incisional hernia, status post component separation repair, with preexisting gastroesophageal reflux disease, hyperlipidemia, and breast cancer. DISCHARGE DIAGNOSES: Complex incarcerated incisional hernia, status post component separation repair, with preexisting gastroesophageal reflux disease, hyperlipidemia, and breast cancer. BRIEF HISTORY: A 71-year-old female who was admitted to [facility] for surgical management of a complex incarcerated incisional hernia. Please reference Dr. Seb Helms's operative note to describe the details. This involved component separation, mesh repair, and abdominal wall reconstruction. After surgery, she was admitted, she received narcotics, and she received IV fluids. She is being discharged home today on August 14. She is walking, she is comfortable. She will go home with a prescription for Percocet. She will resume her home medications of aspirin, Arimidex, vitamins, Lipitor, Prilosec. She will follow up with Dr. Helms in approximately 1 to 2 weeks' time to be evaluated for drain removal. She will not get her drains wet. She will empty them daily and record the amount, or when they are full. She is okay to walk, okay to climb stairs. She will not lift anything more than 20 pounds, she will not drive a car. She will take Tylenol or Advil as needed and only take narcotic as necessary. DO ROSIBEL HENLEY/[id number]
[2016-08-14 14:07] VITALS: BP 118/67; PULSE 87; TEMP 98.2
[2016-08-15] MEDS ORDERED: ASPIRIN 81 MG CHEWABLE TABLETS PO SCH (10:00)
--- NOTE | 2016-08-15 17:06 | PATH ---
Surgical Pathology Report Patient Name: RAVINDER MCDONALD Med. Rec. #: [id number] /Age/Gender: 1945 (Age: 71) / F Account: [id number] Location: [address] [place] [address]/[facility] Taken: 08/13/2016 Received: 08/13/2016 Reported: 08/15/2016 Physicians: Seb Helms Specimen(s) Received A: EXCISED 235 CM OF PEDUNCULATED TISSUE B: FOREIGN BODY Clinical History Complex ventral hernia Final Diagnosis A. SKIN AND SOFT TISSUE, ABDOMINAL WALL, EXCISION: BENIGN SKIN WITH ATTACHED ADIPOSE TISSUE AND FIBROUS TISSUE. B. FOREIGN BODY, REMOVAL: MULTIPLE PORTIONS OF SUTURE (GROSS ONLY). Electronically Signed José Hopkins M.D. Gross Description A. Received in formalin labeled "excised devitalized tissue," are 3 welsh, irregular, unoriented portions of skin with underlying soft tissue ranging from 16.5 x 5.0 x 3.5 cm to 30.0 x 7.5 x 4.0 cm. Sectioning reveals yellow, lobulated adipose tissue. Lens Polisher sections are submitted in 2 cassettes. B. Received in formalin labeled "removed foreign body," are 8 welsh and blue portions of suture material ranging from 0.9-6.5 cm in greatest dimension. No soft tissue is present. No sections are submitted, gross only. 08/13/201608/13/2016
== END 2016-08-14 14:10 | disposition home or self-care (01) | DRG 355 ==
LOC: JSAMEDAYSX 06:12 → J6S 13:57
PROVIDERS: ADMIT Surgery; ATTEND Surgery
PROC: 0KNK0ZZ Release Right Abdomen Muscle, Open Approach (ICD-10-PCS; 2016-08-13)
PROC: 0HB7XZZ Excision of Abdomen Skin, External Approach (ICD-10-PCS; 2016-08-13)
PROC: 0WUF0JZ Supplement Abdominal Wall with Synthetic Substitute, Open Approach (ICD-10-PCS; principal; 2016-08-13 08:00)
PROC: 0KNL0ZZ Release Left Abdomen Muscle, Open Approach (ICD-10-PCS; 2016-08-13 08:00)
DX: K43.0 Incisional hernia with obstruction, without gangrene (principal); I10 Essential (primary) hypertension; Z85.3 Personal history of malignant neoplasm of breast; Z85.43 Personal history of malignant neoplasm of ovary; D64.9 Anemia, unspecified
CPT/HCPCS: 36415; 85027; 88300-TC; 88302-TC; 94010; 94760

== ENCOUNTER 2018-07-16 07:23 | Inpatient (IN) | payer OTHER ==
[2018-07-16 07:32] VITALS: BMI 33.6
--- NOTE | 2018-07-16 08:25 | PDOC ---
Attending Attestation - Resident Resident Name: John Casarez - ED Attending Attestation I have performed the following: I have examined & evaluated the patient, The case was reviewed & discussed with the resident, I agree w/resident's findings & plan, Exceptions are as noted - HPI HPI: 07/16/18 08:13 73yo F hx breast ca (remote), HL, abdominal surgery, SBO (2014, 2016) presents to the ED with b/l upper abd pain, intermittently since last night. Last BM 1 hour ago was small pellets. +nausea, no vomiting. Also reports abd distention. +urinary frequency since yesterday but no dysuria, hematuria. Reports this feels like last SBO. Denies fevers, chills, cp, sob, LE edema, weakness/numbness, dizziness. - Physicial Exam PE: 07/16/18 08:26 agree with resident exam comfortable, non toxic appearing +mild abd distention, +large well healed midline abd scar. +ventral hernia, not hard, no skin changes - Medical Decision Making 07/16/18 08:27 73yo F with hx multiple abd surgeries, SBO s/p surgical repair (Dr. Helms) presents to the ED with abd distention, nausea. Vitals unremarkable. Plan for labs, UA, CTAP, symptom control, reassess. 07/16/18 13:43 CTAP with SBO Case discussed with Dr. Herman by Dr. Casarez, he recommends NGT NGT placed Pt admitted to Dr. Rg Case discussed in detail with admitting physician including history, physical exam and ancillary studies. Admitting physician has assumed care for the patient, will follow all pending diagnostics and will complete the evaluation and treatment. Heart Score/ECG Review #1 07/16/18 08:34 Twelve-lead EKG was performed and reviewed by me. Normal sinus rhythm, rate 68. Normal axis and intervals. No ST elevations or T-wave inversions.
[2018-07-16] MEDS ORDERED: morphine CARPU-JECT 4 MG/1 ML DISP.SYRIN IVPUSH ONE ×3 (08:27→14:11)
[2018-07-16] MEDS ORDERED: ONDANSETRON 4 MG/2 ML VIAL IVPUSH ONE ×2 (08:27→14:14)
[2018-07-16] MEDS ORDERED: LACTATED RINGERS SOLUTION 1,000 ML/1,000 ML INFUS.BAG IV SCH ×2 (08:30→14:15)
[2018-07-16] MEDS ORDERED: ONDANSETRON 4 MG/2 ML VIAL ONE ×2 (08:40→14:16)
[2018-07-16] MEDS ORDERED: morphine SULFATE 4 MG/ML VIAL ONE (08:40)
[2018-07-16 08:43] LABS: BASO % 0.3 % (0-2.0); EOS % 0.3 % (0-4.5); HEMATOCRIT 36.3 % (32.4-45.2); HEMOGLOBIN 11.6 GM/dL (10.7-15.3); LYMPH % 10.3 % (8-40); MCH 21.7 pg (25.7-33.7); MEAN CELL VOLUME 67.8 fl (80-96); MEAN PLT VOLUME 10.1 fl (7.5-11.1); NEUT % 84.1 % (42.8-82.8); PLATELET COUNT 228 K/MM3 (134-434); RBC 5.36 M/mm3 (3.60-5.2); RDW 16.9 % (11.6-15.6); WHITE BLOOD COUNT 8.3 K/mm3 (4.0-10.0)
[2018-07-16 08:57] LABS: PROTHROMBIN TIME (PATIENT) 11.8 SEC (9.7-13.0)
--- NOTE | 2018-07-16 09:05 | PDOC ---
History of Present Illness - General Chief Complaint: Pain Stated Complaint: PAIN ABDOMINAL AREA Time Seen by Provider: 07/16/18 07:43 History Source: Patient, Old Records Exam Limitations: No Limitations - History of Present Illness Initial Comments: HPI: 73 y/o female presenting to [facility] ER complaining of abdominal pain with nausea. States pain started early this morning and was originally in a band like pattern radiating across the top of her abdomen to both sides of her back. Pain has now transitioned to middle to lower right side with diffuse radiation throughout abdomen. Episodic and sharp in nature. Duration is estimated at 2-3 minutes with periods without pain in between. Endorses small amount of nonbloody nonbilious emesis after drinking warm water. Last BM was approx. 1 hour prior to arrival; described as small and with hard pellets; no blood. Pt endorses h/o of multiple episodes of similar pain; last was in 2017 when she was found to have a small bowel obstruction. Pt has a h/o of multiple abdominal surgeries. PCP: Dr. Garcia GI: Dr. Sharee Helms Medical Hx: - Breast CA, s/p radiation and chemo, managed on Anastrozole - GERD Past History - Past Medical History Allergies/Adverse Reactions: Allergies Allergy/AdvReac Type Severity Reaction Status Date / Time gemifloxacin mesylate Allergy Intermediate Rash Verified 07/16/18 07:29 [From Factive] peanut Allergy Intermediate numbness Verified 07/16/18 07:29 Penicillins Allergy Intermediate Rash Verified 07/16/18 07:29 Home Medications: Ambulatory Orders Anastrozole [Arimidex -] 1 mg PO DAILY 06/27/16 Aspirin [ASA -] 81 mg PO ASDIR 06/27/16 Atorvastatin Ca [Lipitor] 40 mg PO HS 06/27/16 C,E,Zinc,Copper 24/Om3/Lut/Gerald [Ocuvite Adult 50 Plus Softgel] 1 tab PO DAILY Cholecalciferol (Vitamin D3) [Vitamin D3] 1,000 mg PO DAILY 06/27/16 Multivit-Min/Iron/Folic/Lutein [Centrum Silver Women Tablet] 1 each PO DAILY Omeprazole Magnesium [Prilosec] 20.6 mg PO DAILY 06/27/16 Biotin 1,000 mcg PO DAILY 07/16/18 Asthma: No Cancer: Yes (Left Breast CA s/p Chemo and Radiation, managed on Anastrozole) CVA: No COPD: No Dementia: No Diabetes: Yes (borderline no meds) GI Disorders: Yes (HERNIAS, BLOCKAGE.) Disorders: No HTN: No (pt denies) Hypercholesterolemia: Yes (on meds) Liver Disease: No Seizures: No Thyroid Disease: No - Surgical History Abdominal Surgery: Yes (LAPAROTOMY 2009 SMALL BOWEL OBSTRUTION- FIOR) Appendectomy: No Cardiac Surgery: No Cholecystectomy: No Lung Surgery: No Neurologic Surgery: No Orthopedic Surgery: No Other Surgical History: - s/p Ovarian Cystectomy with Cancerous Cells on Biopsy (Stage 1) (1999) - s/p Total Hysterectomy (1999) - s/p Abdominal hernia repair with mesh (1999) - s/p Abdominal hernia repair/revision with mesh (2000) - s/p SBO w/ abdominal mesh repair/revision (2009) - s/p Left Breast lumpectomy and excision of 7 lymph nodes (2012) - s/p additional left breast lumpectomy and excision of 8 lymph nodes (2012) - s/p removal of water ball pocket in left axilla (2012) - s/p abdominal hernia repair/revision (2012) - s/p SBO with hernia repair/revision (2016) by Dr. Helms - Immunization History Immunization Up to Date: Yes - Suicide/Smoking/Psychosocial Hx Smoking History: Never smoked Have you smoked in the past 12 months: No Hx Alcohol Use: No Drug/Substance Use Hx: No Substance Use Type: None Hx Substance Use Treatment: No Review of Systems - Review of Systems Able to Perform ROS?: Yes Comments:: In addition to that documented in the HPI above, the additional ROS was obtained : Constitutional: Denies fevers or chills Head: Denies vision changes ENMT: Denies sore throat CV: Denies chest pain Resp: Denies SOB GI: Denies vomiting or diarrhea : Endorses increased urinary frequency since last evening without dysuria, hematuria, or discharge MSK: Denies recent trauma Skin: Denies new rashes Neuro: Denies new numbness or tingling or weakness Endocrine: Denies polyuria Heme: Denies bleeding or bruising *Physical Exam - Vital Signs Last Vital Signs Temp Pulse Resp BP Pulse Ox 97.9 F 86 17 126/73 96 07/16/18 07:29 07/16/18 07:29 07/16/18 07:29 07/16/18 07:29 07/16/18 07:29 - Physical Exam Comments: Constitutional: Well-developed, well-nourished elderly female in no acute distress but obvious discomfort. Found semi-fowlers in hospital bed. Alert and oriented x4. Answered all questions appropriately and completely. Speech was non -labored, non-pressured. Head: Normocephalic. No obvious external signs of trauma. Eyes: Sclerae white. Ears: Hearing grossly intact. Neck: Supple, trachea is midline. Cardiovascular / Chest: Regular rate and regular rhythm. No murmur, rubs, clicks, or gallops. Peripheral pulses: radial pulses full. No anterior chest wall tenderness. No pretibial edema. Respiratory: Breathing unlabored. Equal chest rise and fall. Clear to auscultation bilaterally. No stridor, no wheezing, no rhonchi. Gastrointestinal: abdomen is distended with tender palpable mass in RLQ. Post surgical scar extending from xiphoid to below umbilicus. No bruising or other signs of trauma. Neuro: Alert and oriented. Moving all four extremities spontaneously. Gait normal. Skin: Warm, dry, and intact. : No R or L CVA tenderness. Psych: Affect: appropriate. Mood: normal. Procedures - Additional Procedures Progress: 16Fr NG tube placed in left nare to low continuous suction. Brown gastric contents returned. Anesthetized with nebulized 4% lidocaine and lidocaine gel prior to insertion. Procedure well tolerated. Secured with commercially available adhesive securing device. ED Treatment Course - LABORATORY CBC & Chemistry Diagram: 07/16/18 08:29 07/16/18 09:35 - ADDITIONAL ORDERS Additional order review: 07/16/18 07/16/18 07/16/18 09:35 09:35 08:46 PT with INR INR PTT (Actin FS) Sodium 137 Potassium 4.6 Chloride 104 Carbon Dioxide 26 Anion Gap 7 L BUN 12 Creatinine 1.0 Creat Clearance w eGFR 54.05 Random Glucose 154 H Lactic Acid Calcium 10.0 Total Bilirubin 1.0 AST 30 ALT 30 Alkaline Phosphatase 71 Total Protein 8.6 H Albumin 4.4 Lipase 143 Urine Color Yellow Urine Appearance Turbid Urine pH >= 9.0 H D Ur Specific [place] 1.022 Urine Protein Trace Urine Glucose (UA) Negative Urine Ketones Negative Urine Blood Negative Urine Nitrite Negative Urine Bilirubin Negative Urine Urobilinogen 1.0 Ur Leukocyte Esterase Trace Urine WBC (Auto) 3 Urine RBC (Auto) 3 Urine Casts (Auto) 4 U Epithel Cells (Auto) 1.4 Urine Bacteria (Auto) 7.3 Blood Type Antibody Screen 07/16/18 07/16/18 07/16/18 08:34 08:29 08:29 PT with INR INR PTT (Actin FS) Sodium Potassium Chloride Carbon Dioxide Anion Gap BUN Creatinine Creat Clearance w eGFR Random Glucose Lactic Acid 3.1 H* Calcium Total Bilirubin AST ALT Alkaline Phosphatase Total Protein Albumin Lipase Urine Color Urine Appearance Urine pH Ur Specific [place] Urine Protein Urine Glucose (UA) Urine Ketones Urine Blood Urine Nitrite Urine Bilirubin Urine Urobilinogen Ur Leukocyte Esterase Urine WBC (Auto) Urine RBC (Auto) Urine Casts (Auto) U Epithel Cells (Auto) Urine Bacteria (Auto) Blood Type Cancelled O POSITIVE Antibody Screen Cancelled Negative 07/16/18 07/16/18 08:29 08:24 PT with INR 11.80 INR 1.00 PTT (Actin FS) 32.0 Sodium Cancelled Potassium Cancelled Chloride Cancelled Carbon Dioxide Cancelled Anion Gap Cancelled BUN Cancelled Creatinine Cancelled Creat Clearance w eGFR Cancelled Random Glucose Cancelled Lactic Acid Calcium Cancelled Total Bilirubin Cancelled AST Cancelled ALT Cancelled Alkaline Phosphatase Cancelled Total Protein Cancelled Albumin Cancelled Lipase Cancelled Urine Color Urine Appearance Urine pH Ur Specific [place] Urine Protein Urine Glucose (UA) Urine Ketones Urine Blood Urine Nitrite Urine Bilirubin Urine Urobilinogen Ur Leukocyte Esterase Urine WBC (Auto) Urine RBC (Auto) Urine Casts (Auto) U Epithel Cells (Auto) Urine Bacteria (Auto) Blood Type Antibody Screen 07/16/18 08:29 RBC 5.36 H MCV 67.8 L MCHC 32.0 RDW 16.9 H MPV 10.1 D Neutrophils % 84.1 H D Lymphocytes % 10.3 D Monocytes % 5.0 Eosinophils % 0.3 Basophils % 0.3 - RADIOLOGY Radiology Studies Ordered: Category Date Time Status ABDOMEN & PELVIS CT WITH CONTR [CT] Stat CT Scan 07/16/18 08:24 Completed ABDOMEN FLAT & UPRIGHT [RAD] Stat Radiology 07/16/18 08:26 Completed CHEST PA & LAT [RAD] Stat Radiology 07/16/18 08:25 Completed - Medications Given in the ED: ED Medications Discontinued Medications Generic Name Dose Route Start Last Admin Trade Name Yady PRN Reason Stop Dose Admin Lactated Ringer's 1,000 ml in 1,000 mls @ 100 mls/hr 07/16/18 08:30 07/16/18 08:48 Lactated Ringers Solution IV 100 mls/hr ASDIR ART Administration Lidocaine HCl 5 ml 07/16/18 14:12 07/16/18 14:41 Xylocaine 4% Preservative Free NR 07/16/18 14:13 5 ml NOW STA Administration Lidocaine HCl 1 ml 07/16/18 14:16 07/16/18 14:41 Xylocaine 2% Uro-Jet NR 07/16/18 14:17 1 ml ONCE ONE Administration Morphine Sulfate 4 mg 07/16/18 08:27 07/16/18 08:48 Morphine Injection - IVPUSH 07/16/18 08:28 4 mg ONCE ONE Administration Morphine Sulfate 2 mg 07/16/18 11:04 07/16/18 11:13 Morphine Injection - IVPUSH 07/16/18 11:05 2 mg ONCE ONE Administration Morphine Sulfate 2 mg 07/16/18 14:11 07/16/18 14:17 Morphine Injection - IVPUSH 07/16/18 14:12 2 mg ONCE ONE Administration Ondansetron HCl 4 mg 07/16/18 08:27 07/16/18 08:48 Zofran Injection IVPUSH 07/16/18 08:28 4 mg ONCE ONE Administration Ondansetron HCl 4 mg 07/16/18 14:14 07/16/18 14:18 Zofran Injection IVPUSH 07/16/18 14:15 4 mg ONCE ONE Administration Medical Decision Making - Medical Decision Making *Reviewed vital signs, nursing notes, and prior visit documentation (if available). 73 y/o female presenting with abdominal pain x1 day with single episode of emesis and persistent nausea. Significant past abdominal surgical history with multiple SBOs. Pain described as similar to previous. Afebrile. Vitals unremarkable for hypotension or tachycardia. Physical exam as described above. Suspect likely acute SBO. Given previous abdominal instrumentation, will obtain CT of abdomen with PO and IV contrast. Will obtain plain abdominal film while awaiting contrast to evaluate for free air and obstructive pattern. Pre-op labs ordered. Ordered zofran and morphine for symptom relief. Started maintenance LR fluid. No free air on plain film. CT scan concerning for possible mid SBO. Lactic acid elevated. Low suspicion for mesenteric ischemia as pts pain is in proportion to exam. Repeat lactic acid trended downward after IVFB. CBC unremarkable for leukocytosis. CMP unremarkable for significant electrolyte derangement. Lipase not elevated. UA unremarkable for pyuria, leukocyte esterase, or nitrites. Low suspicion for UTI. Culture pending. 13:[address] Herman, surgeon covering for Dr. Helms. Verbally appraised of the pts HPI, ED course, and current plan of management. Requested NG placement and repeat abdominal plain films. 13:[address] Aguirre through office answering service. Awaiting call back. NG tube placed to low suction. Anticipate transition to intermittent suction once admitted. No [place] Sump tubing available. 15:[address] Rm. Verbally appraised of the pts HPI, ED course, and current plan of management. Will admit pt to med /surg on inpatient status. *DC/Admit/Observation/Transfer Diagnosis at time of Disposition: SBO (small bowel obstruction), Elevated lactic acid level Abdominal pain Qualifiers: Abdominal location: unspecified location Qualified Code(s): R10.9 - Unspecified abdominal pain - Discharge Dispostion Condition at time of disposition: Stable Decision to Admit order: Yes - Referrals - Patient Instructions - Post Discharge Activity
[2018-07-16 09:09] LABS: EPI CELLS 1.4 /HPF (0-5); PH,URINE >= 9.0 (5.0-8.0); URINE APPEARANCE TURBID; URINE BACTERIA 7.3 /hpf (NEGATIVE); URINE BILIRUBIN NEGATIVE (NEGATIVE); URINE CASTS 4 /hpf (0-8); URINE COLOR YELLOW; URINE GLUCOSE (UA) NEGATIVE (NEGATIVE); URINE KETONE NEGATIVE (NEGATIVE); URINE LEUK ESTERASE TRACE (NEGATIVE); URINE NITRITE NEGATIVE (NEGATIVE); URINE PROTEIN TRACE (NEGATIVE); URINE RBC 3 /hpf (0-4); URINE WBC 3 /hpf (0-5)
[2018-07-16 10:15] LABS: ALBUMIN 4.4 g/dl (3.4-5.0); ALK PHOS 71 U/L (45-117); ANION GAP 7 MMOL/L (8-16); BLOOD UREA NITROGEN 12 mg/dL (7-18); CHLORIDE 104 mmol/L (98-107); CO2 26 mmol/L (21-32); GLUCOSE,RANDOM 154 mg/dL (74-106); POTASSIUM 4.6 mmol/L (3.5-5.1); SGOT/AST 30 U/L (15-37); SGPT/ALT 30 U/L (13-61); SODIUM 137 mmol/L (136-145); TOT PROT 8.6 g/dl (6.4-8.2)
[2018-07-16 10:59] LABS: ANISOCYTOSIS 2+; MACROCYTOSIS 0; OVALOCYTE 2+; PLATELET ESTIMATE NORMAL; TARGET CELLS 1+
[2018-07-16] MEDS ORDERED: MORPHINE SULFATE 2 MG/ML VIAL ONE ×2 (11:04→14:16)
--- NOTE | 2018-07-16 12:22 | EKG ---
Test Reason : Blood Pressure : / mmHG Vent. Rate : 068 BPM Atrial Rate : 068 BPM P-R Int : 142 ms QRS Dur : 078 ms QT Int : 426 ms P-R-T Axes : 044 002 057 degrees QTc Int : 452 ms NORMAL SINUS RHYTHM NORMAL ECG WHEN COMPARED WITH ECG OF 27-JUN-2016 23:53, NO SIGNIFICANT CHANGE WAS FOUND Confirmed by JEEVAN SANDRA MD ([id number]) on 07/16/2018 12:22:37 PM Referred By: Confirmed By:JEEVAN SANDRA MD
[2018-07-16] MEDS ORDERED: LIDOCAINE HCL 4% PRESERVE-FREE 5 ML AMP NR STA (14:12)
[2018-07-16] MEDS ORDERED: LIDOCAINE HCL 2% JELLY 10 ML CARTRIDGE NR ONE (14:16)
[2018-07-16] MEDS ORDERED: LIDOCAINE HCL 2% JELLY 10 ML CARTRIDGE ONE (14:16)
--- NOTE | 2018-07-16 15:32 | PN ---
Progress Note (short form) - Note Progress Note: surgery pt seen and examined. 73f well known to me with complex medical surgical history, previous ovarian cyst/cancer removal, hysterectomy, and hernia repair with mesh followed by recurrent repair with mesh x 2. definitive repair done in [address] Helms with component separation and large mesh. pt has been well since but takes miralax with her coffee. Pt ate broccoli and fried rice yesterday and developed abd pain, n/v. ct shows psbo with fecalized loop at inferior abd wall with likely transition. afebrile abd- soft, nt, moderate distension Plan- likely adhesive psbo. no recurrence of hernia. no evidence of bowel compromise. suggest repeat kub to follow migration of contrast. suggest ngt. would expect psbo to resolve in next few days. Will re-eval Thursday if still clinically obstructed. Would not consider surgery until late next week or possibly longer due to large mesh and hostile abd. If clinical condition changes (fever, leukocytosis, worsening pain), please notify for re-evaluation. [phone]
[2018-07-16] MEDS ORDERED: morphine SULFATE 4 MG/ML VIAL IVPUSH PRN (16:47)
--- NOTE | 2018-07-16 16:48 | HP ---
Admitting History and Physical - Admission Chief Complaint: abdominla muñoz History of Present Illness: 73yo F hx breast ca (remote), HL, abdominal surgery, SBO (2014, 2016) presents to the ED with b/l upper abd pain, intermittently since last night. Last BM 1 hour ago was small pellets. +nausea, no vomiting. Also reports abd distention. +urinary frequency since yesterday but no dysuria, hematuria. Reports this feels like last SBO. Denies fevers, chills, cp, sob, LE edema, weakness/numbness, dizziness ct scan done - Past Medical History Cardiovascular: Yes: HTN, Hyperlipdemia Gastrointestinal: Yes: GERD - Past Surgical History Past Surgical History: Yes: Hernia Repair - Smoking History Smoking history: Never smoked Have you smoked in the past 12 months: No - Alcohol/Substance Use Hx Alcohol Use: No Home Medications - Allergies Allergies/Adverse Reactions: Allergies Allergy/AdvReac Type Severity Reaction Status Date / Time gemifloxacin mesylate Allergy Intermediate Rash Verified 07/16/18 07:29 [From Factive] peanut Allergy Intermediate numbness Verified 07/16/18 07:29 Penicillins Allergy Intermediate Rash Verified 07/16/18 07:29 - Home Medications Home Medications: Ambulatory Orders Anastrozole [Arimidex -] 1 mg PO DAILY 06/27/16 Aspirin [ASA -] 81 mg PO ASDIR 06/27/16 Atorvastatin Ca [Lipitor] 40 mg PO HS 06/27/16 C,E,Zinc,Copper 24/Om3/Lut/Gerald [Ocuvite Adult 50 Plus Softgel] 1 tab PO DAILY Cholecalciferol (Vitamin D3) [Vitamin D3] 1,000 mg PO DAILY 06/27/16 Multivit-Min/Iron/Folic/Lutein [Centrum Silver Women Tablet] 1 each PO DAILY Omeprazole Magnesium [Prilosec] 20.6 mg PO DAILY 06/27/16 Biotin 1,000 mcg PO DAILY 07/16/18 Review of Systems - Review of Systems Gastrointestinal: reports: Abdominal Pain Physical Examination Vital Signs: Vital Signs Temperature 98.0 F 07/16/18 11:30 Pulse Rate 89 07/16/18 11:30 Respiratory Rate 18 07/16/18 11:30 Blood Pressure 122/66 07/16/18 11:30 O2 Sat by Pulse Oximetry (%) 98 04/05/19 11:30 Constitutional: Yes: Calm Cardiovascular: Yes: Regular Rate and Rhythm, S1, S2 Respiratory: Yes: CTA Bilaterally Gastrointestinal: Yes: Soft, Hypoactive Bowel Sounds, Other (surgical scar seen) Labs: CBC, BMP 07/16/18 08:29 07/16/18 09:35 Imaging - Results Cat Scan: Report Reviewed (mid small bowel obstruction) Problem List - Problems (1) Abdominal pain Assessment/Plan: ng tube to inermittent suction surgiery on board ivf zofran prn pain control abdominal xray in AM Code(s): R10.9 - UNSPECIFIED ABDOMINAL PAIN
[2018-07-16] MEDS: SODIUM CHLORIDE 1,000 ML IV SCH (17:36)
[2018-07-16] MEDS: HEPARIN NA (PORCINE) 5,000 UNITS/ML 1ML VIAL SQ SCH (21:29)
[2018-07-17 07:40] LABS: INR 1.03 (0.83-1.09); PROTHROMBIN TIME (PATIENT) 12.2 SEC (9.7-13.0)
[2018-07-17 07:42] LABS: HEMATOCRIT 32.7 % (32.4-45.2); HEMOGLOBIN 10.4 GM/dL (10.7-15.3); MCH 21.6 pg (25.7-33.7); MCHC 31.8 g/dl (32.0-36.0); MEAN CELL VOLUME 67.9 fl (80-96); MEAN PLT VOLUME 9.4 fl (7.5-11.1); PLATELET COUNT 164 K/MM3 (134-434); RBC 4.81 M/mm3 (3.60-5.2); RDW 16.6 % (11.6-15.6); WHITE BLOOD COUNT 6.2 K/mm3 (4.0-10.0)
[2018-07-17 07:43] LABS: ACTIVATED PTT 29.4 SECONDS (25.2-36.5)
[2018-07-17 08:01] LABS: ALBUMIN 3.4 g/dl (3.4-5.0); ALK PHOS 58 U/L (45-117); ANION GAP 8 MMOL/L (8-16); BILIRUBIN,TOTAL 0.9 mg/dL (0.2-1); BLOOD UREA NITROGEN 10 mg/dL (7-18); CALCIUM 8.9 mg/dL (8.5-10.1); CHLORIDE 102 mmol/L (98-107); CHOLESTEROL 131 mg/dL (50-200); CO2 27 mmol/L (21-32); CREATININE 0.9 mg/dL (0.55-1.3); GLUCOSE,RANDOM 131 mg/dL (74-106); HDL CHOLESTEROL 56 mg/dL (40-60); MAGNESIUM 2.1 mg/dL (1.8-2.4); PHOSPHOROUS 4.2 mg/dL (2.5-4.9); POTASSIUM 4.1 mmol/L (3.5-5.1); SGOT/AST 18 U/L (15-37); SGPT/ALT 25 U/L (13-61); SODIUM 137 mmol/L (136-145); TOT PROT 6.5 g/dl (6.4-8.2); TRIGLYCERIDES 117 mg/dL (0-150)
[2018-07-17] MEDS: SODIUM CHLORIDE 1,000 ML IV SCH ×2 (09:10→20:21)
[2018-07-17] MEDS: PANTOPRAZOLE SODIUM 40 MG VIAL IVPUSH SCH (09:11)
[2018-07-17] MEDS: HEPARIN NA (PORCINE) 5,000 UNITS/ML 1ML VIAL SQ SCH ×2 (09:11→22:10)
--- NOTE | 2018-07-17 14:34 | PN ---
Progress Note, Physician - Current Medication List Current Medications: Active Medications Heparin Sodium (Porcine) (Heparin -) 5,000 unit SQ BID [facility] Last Admin: 07/17/18 09:11 Dose: 5,000 unit Lactated Ringer's (Lactated Ringers Solution) 1,000 ml in 1,000 mls @ 120 mls/ hr IV ASDIR [facility] Last Admin: 07/16/18 14:42 Dose: 120 mls/hr Sodium Chloride (Normal Saline -) 1,000 mls @ 83 mls/hr IV ASDIR [facility] Last Admin: 07/17/18 09:10 Dose: 83 mls/hr Morphine Sulfate (Morphine Sulfate) 4 mg IVPUSH Q6H PRN PRN Reason: PAIN LEVEL 7 - 10 Last Admin: 07/16/18 21:30 Dose: 4 mg Pantoprazole Sodium (Protonix Iv) 40 mg IVPUSH DAILY [facility] Last Admin: 07/17/18 09:11 Dose: 40 mg - Objective Vital Signs: Vital Signs Temperature 98.3 F 07/17/18 09:00 Pulse Rate 90 07/17/18 09:00 Respiratory Rate 18 07/17/18 09:00 Blood Pressure 142/72 07/17/18 09:00 O2 Sat by Pulse Oximetry (%) 94 L 07/17/18 09:00 Cardiovascular: Yes: Regular Rate and Rhythm Respiratory: Yes: Regular, CTA Bilaterally Gastrointestinal: Yes: Soft, Hypoactive Bowel Sounds. No: Tenderness Labs: CBC, BMP 07/17/18 05:00 07/17/18 05:00 INR, PTT INR 1.03 (0.83-1.09) 07/17/18 05:00 Problem List - Problems (1) SBO (small bowel obstruction) Assessment/Plan: ng tube to inermittent suction surgiery on board ivf zofran prn pain control abdominal xray in AM Code(s): K56.609 - UNSP INTESTNL OBST, UNSP TO PARTIAL VERSUS COMPLETE OBST (2) Breast CA Code(s): C50.919 - MALIGNANT NEOPLASM OF UNSP SITE OF UNSPECIFIED FEMALE BREAST (3) Hyperlipidemia Code(s): E78.5 - HYPERLIPIDEMIA, UNSPECIFIED
[2018-07-17] MEDS: ACETAMINOPHEN 1000 MG/100 ML VIAL (NON FORMULARY) IVPB PRN (17:45)
[2018-07-18 08:04] LABS: BASO % 1.1 % (0-2.0); EOS % 4.9 % (0-4.5); HEMATOCRIT 30.1 % (32.4-45.2); HEMOGLOBIN 9.9 GM/dL (10.7-15.3); LYMPH % 26.4 % (8-40); MCHC 32.9 g/dl (32.0-36.0); MEAN CELL VOLUME 66.9 fl (80-96); MEAN PLT VOLUME 9.9 fl (7.5-11.1); MONO % 10.2 % (3.8-10.2); NEUT % 57.4 % (42.8-82.8); PLATELET COUNT 161 K/MM3 (134-434); RBC 4.49 M/mm3 (3.60-5.2); RDW 16.5 % (11.6-15.6); WHITE BLOOD COUNT 3.9 K/mm3 (4.0-10.0)
[2018-07-18 08:29] LABS: ALBUMIN 3.2 g/dl (3.4-5.0); ALK PHOS 56 U/L (45-117); ANION GAP 6 MMOL/L (8-16); BILIRUBIN,TOTAL 0.9 mg/dL (0.2-1); BLOOD UREA NITROGEN 10 mg/dL (7-18); CALCIUM 8.1 mg/dL (8.5-10.1); CHLORIDE 107 mmol/L (98-107); CO2 29 mmol/L (21-32); CREATININE 0.8 mg/dL (0.55-1.3); GLUCOSE,RANDOM 96 mg/dL (74-106); POTASSIUM 3.8 mmol/L (3.5-5.1); SGOT/AST 20 U/L (15-37); SGPT/ALT 20 U/L (13-61); SODIUM 142 mmol/L (136-145); TOT PROT 6.3 g/dl (6.4-8.2)
[2018-07-18] MEDS: PANTOPRAZOLE SODIUM 40 MG VIAL IVPUSH SCH (09:14)
[2018-07-18] MEDS: HEPARIN NA (PORCINE) 5,000 UNITS/ML 1ML VIAL SQ SCH ×2 (09:14→21:21)
[2018-07-18] MEDS: SODIUM CHLORIDE 1,000 ML IV SCH ×2 (09:18→17:29)
--- NOTE | 2018-07-18 12:23 | PN ---
Progress Note, Physician Chief Complaint: AWAKE ALERT EVENTS AND NOTES REVIEWED BEDSIDE - Current Medication List Current Medications: Active Medications Acetaminophen (Ofirmev Injection -) 1,000 mg IVPB Q6H PRN PRN Reason: HEADACHE Last Admin: 07/17/18 17:45 Dose: 1,000 mg Heparin Sodium (Porcine) (Heparin -) 5,000 unit SQ BID [facility] Last Admin: 07/18/18 09:14 Dose: 5,000 unit Sodium Chloride (Normal Saline -) 1,000 mls @ 83 mls/hr IV ASDIR [facility] Last Admin: 07/18/18 09:18 Dose: 83 mls/hr Morphine Sulfate (Morphine Sulfate) 4 mg IVPUSH Q6H PRN PRN Reason: PAIN LEVEL 7 - 10 Last Admin: 07/16/18 21:30 Dose: 4 mg Pantoprazole Sodium (Protonix Iv) 40 mg IVPUSH DAILY [facility] Last Admin: 07/18/18 09:14 Dose: 40 mg - Objective Vital Signs: Vital Signs Temperature 98.8 F 07/18/18 09:09 Pulse Rate 87 07/18/18 09:09 Respiratory Rate 18 07/18/18 05:00 Blood Pressure 124/71 07/18/18 09:09 O2 Sat by Pulse Oximetry (%) 95 07/18/18 09:00 Constitutional: Yes: Mild Distress Cardiovascular: Yes: Regular Rate and Rhythm Respiratory: Yes: CTA Bilaterally Gastrointestinal: Yes: Soft, Tenderness Genitourinary: Yes: WNL Musculoskeletal: Yes: Muscle Weakness Edema: No Integumentary: Yes: WNL Wound/Incision: Yes: Clean/Dry Neurological: Yes: WNL ...Motor Strength: WNL Psychiatric: Yes: WNL Labs: CBC, BMP 07/18/18 06:30 07/18/18 06:10 INR, PTT INR 1.03 (0.83-1.09) 07/17/18 05:00 Problem List - Problems (1) Abdominal pain Code(s): R10.9 - UNSPECIFIED ABDOMINAL PAIN Qualifiers: Abdominal location: unspecified location Qualified Code(s): R10.9 - Unspecified abdominal pain (2) SBO (small bowel obstruction) Code(s): K56.609 - UNSP INTESTNL OBST, UNSP TO PARTIAL VERSUS COMPLETE OBST (3) GERD (gastroesophageal reflux disease) Code(s): K21.9 - GASTRO-ESOPHAGEAL REFLUX DISEASE WITHOUT ESOPHAGITIS (4) Hyperlipidemia Code(s): E78.5 - HYPERLIPIDEMIA, UNSPECIFIED Assessment/Plan NPO WITH SURGERY FOLLOW UP IVF PAIN CONTROL H/O ABDOMENAL MESH SURGERY FOR HERNIA REPAIR IN PAST LIKELY CASUING SBO. MAY NEED SURGICAL REPAIR NGT SURGERY FOLLOW UP
[2018-07-18] MEDS: ACETAMINOPHEN 1000 MG/100 ML VIAL (NON FORMULARY) IVPB PRN (17:28)
[2018-07-19] MEDS: SODIUM CHLORIDE 1,000 ML IV SCH ×2 (02:41→16:31)
[2018-07-19 07:02] LABS: HEMATOCRIT 30.1 % (32.4-45.2); HEMOGLOBIN 9.7 GM/dL (10.7-15.3); MCH 21.7 pg (25.7-33.7); MCHC 32.1 g/dl (32.0-36.0); MEAN CELL VOLUME 67.6 fl (80-96); MEAN PLT VOLUME 9.7 fl (7.5-11.1); PLATELET COUNT 159 K/MM3 (134-434); RBC 4.45 M/mm3 (3.60-5.2); RDW 16.3 % (11.6-15.6); WHITE BLOOD COUNT 4.3 K/mm3 (4.0-10.0)
[2018-07-19 07:24] LABS: ANION GAP 8 MMOL/L (8-16); BLOOD UREA NITROGEN 10 mg/dL (7-18); CALCIUM 8.2 mg/dL (8.5-10.1); CHLORIDE 106 mmol/L (98-107); CO2 25 mmol/L (21-32); CREATININE 0.6 mg/dL (0.55-1.3); GLUCOSE,RANDOM 71 mg/dL (74-106); POTASSIUM 3.6 mmol/L (3.5-5.1); SODIUM 140 mmol/L (136-145)
[2018-07-19] MEDS: PANTOPRAZOLE SODIUM 40 MG VIAL IVPUSH SCH (09:10)
[2018-07-19] MEDS: ACETAMINOPHEN 1000 MG/100 ML VIAL (NON FORMULARY) IVPB PRN (09:12)
[2018-07-19] MEDS: HEPARIN NA (PORCINE) 5,000 UNITS/ML 1ML VIAL SQ SCH ×2 (09:20→21:24)
--- NOTE | 2018-07-19 09:24 | PN ---
Progress Note (short form) - Note Progress Note: surgery pt seen and examined. feels well. large wet bm thursday, kub thursday with contrast in colon, lots of flatus, minimal ngt output afebrile abd- soft,mild distension, nt Plan- resolving psbo. remove ngt. full liquids tonight if remains well and possible d/c in am if tolerating. should stay on liquids for 1 week at home. should avoid fiber boluses in the future.
[2018-07-19] MEDS ORDERED: ACETAMINOPHEN 325 MG TABLET (FP) PO PRN (13:24)
--- NOTE | 2018-07-19 13:25 | PN ---
Progress Note, Physician Chief Complaint: seen and examined ambulating in hallways to get full liquid diet tonight - Current Medication List Current Medications: Active Medications Acetaminophen (Ofirmev Injection -) 1,000 mg IVPB Q6H PRN PRN Reason: HEADACHE Last Admin: 07/19/18 09:12 Dose: 1,000 mg Heparin Sodium (Porcine) (Heparin -) 5,000 unit SQ BID [facility] Last Admin: 07/19/18 09:20 Dose: 5,000 unit Sodium Chloride (Normal Saline -) 1,000 mls @ 83 mls/hr IV ASDIR [facility] Last Admin: 07/19/18 02:41 Dose: 83 mls/hr Morphine Sulfate (Morphine Sulfate) 4 mg IVPUSH Q6H PRN PRN Reason: PAIN LEVEL 7 - 10 Last Admin: 07/16/18 21:30 Dose: 4 mg Pantoprazole Sodium (Protonix Iv) 40 mg IVPUSH DAILY [facility] Last Admin: 07/19/18 09:10 Dose: 40 mg - Objective Vital Signs: Vital Signs Temperature 98.3 F 07/19/18 11:00 Pulse Rate 86 07/19/18 11:00 Respiratory Rate 18 07/19/18 11:00 Blood Pressure 141/68 07/19/18 11:00 O2 Sat by Pulse Oximetry (%) 97 07/19/18 09:00 Constitutional: Yes: Calm Cardiovascular: Yes: Regular Rate and Rhythm, S1, S2 Respiratory: Yes: CTA Bilaterally Gastrointestinal: Yes: Normal Bowel Sounds, Soft Labs: CBC, BMP 07/19/18 05:10 07/19/18 05:10 INR, PTT INR 1.03 (0.83-1.09) 07/17/18 05:00 Problem List - Problems (1) Abdominal pain Assessment/Plan: ng tube to inermittent suction - removed surgiery on board- full liquid diet tonight if tolerated the n dc home tmw with full liquid diet for 1 week ivf zofran prn pain control abdominal xray - improved Code(s): R10.9 - UNSPECIFIED ABDOMINAL PAIN Qualifiers: Abdominal location: unspecified location Qualified Code(s): R10.9 - Unspecified abdominal pain
[2018-07-20 08:01] LABS: ALBUMIN 3.1 g/dl (3.4-5.0); ALK PHOS 50 U/L (45-117); ANION GAP 9 MMOL/L (8-16); BILIRUBIN,TOTAL 1.3 mg/dL (0.2-1); BLOOD UREA NITROGEN 8 mg/dL (7-18); CALCIUM 7.9 mg/dL (8.5-10.1); CHLORIDE 109 mmol/L (98-107); CO2 25 mmol/L (21-32); CREATININE 0.7 mg/dL (0.55-1.3); GLUCOSE,RANDOM 83 mg/dL (74-106); POTASSIUM 3.6 mmol/L (3.5-5.1); SGOT/AST 25 U/L (15-37); SGPT/ALT 27 U/L (13-61); SODIUM 142 mmol/L (136-145); TOT PROT 6.1 g/dl (6.4-8.2)
[2018-07-20] MEDS: HEPARIN NA (PORCINE) 5,000 UNITS/ML 1ML VIAL SQ SCH (09:27)
[2018-07-20] MEDS: PANTOPRAZOLE SODIUM 40 MG VIAL IVPUSH SCH (09:28)
[2018-07-20 14:38] VITALS: BP 126/64; PULSE 81; TEMP 98.5
--- NOTE | 2018-07-20 15:43 | DS ---
Physical Examination Vital Signs: Vital Signs Temperature 98.5 F 07/20/18 14:34 Pulse Rate 81 07/20/18 14:34 Respiratory Rate 20 07/20/18 14:34 Blood Pressure 126/64 07/20/18 14:34 O2 Sat by Pulse Oximetry (%) 96 07/20/18 09:00 Constitutional: Yes: No Distress Eyes: Yes: WNL HENT: Yes: WNL Neck: Yes: WNL Cardiovascular: Yes: WNL Respiratory: Yes: WNL Gastrointestinal: Yes: WNL Renal/: Yes: WNL Musculoskeletal: Yes: WNL Extremities: Yes: WNL Edema: No Peripheral Pulses WNL: Yes Neurological: Yes: WNL ...Motor Strength: WNL Psychiatric: Yes: WNL Labs: CBC, BMP 07/19/18 05:10 07/20/18 07:10 Discharge Summary Reason For Visit: SMALL BOWEL OBSTRUCTION Current Active Problems Abdominal pain (Acute) Breast CA (Acute) Elevated lactic acid level (Acute) SBO (small bowel obstruction) (Acute) Procedures: Principal: ct scan Hospital Course: admitted sbo, treated with pain control, ivf, antiemetics and surgical eval, responded well and no need for surgery Condition: Stable - Instructions Diet, Activity, Other Instructions: Full liquid diet for one week FU with surgeon in one week see dr hernandez in 7 days Disposition: HOME - Home Medications Comprehensive Discharge Medication List: Ambulatory Orders Anastrozole [Arimidex -] 1 mg PO DAILY 06/27/16 Aspirin [ASA -] 81 mg PO ASDIR 06/27/16 Atorvastatin Ca [Lipitor] 40 mg PO HS 06/27/16 C,E,Zinc,Copper 24/Om3/Lut/Gerald [Ocuvite Adult 50 Plus Softgel] 1 tab PO DAILY Cholecalciferol (Vitamin D3) [Vitamin D3] 1,000 mg PO DAILY 06/27/16 Multivit-Min/Iron/Folic/Lutein [Centrum Silver Women Tablet] 1 each PO DAILY Omeprazole Magnesium [Prilosec] 20.6 mg PO DAILY 06/27/16 Biotin 1,000 mcg PO DAILY 07/16/18 Acetaminophen [Tylenol .Regular Strength -] 650 mg PO Q6H PRN tablet 07/20/18
== END 2018-07-20 16:40 | disposition home or self-care (01) | DRG 389 ==
LOC: SUPCPDRO 07:23 → JER 07:23 → JERBED 12:56 → J7W 19:01
PROVIDERS: ADMIT Student in an Organized Health Care Education/Training Program; ATTEND Student in an Organized Health Care Education/Training Program
DX: K56.699 Other intestinal obstruction unspecified as to partial versus complete obstruction (principal); E87.2 Acidosis; K21.9 Gastro-esophageal reflux disease without esophagitis; E78.5 Hyperlipidemia, unspecified; Z85.3 Personal history of malignant neoplasm of breast
CPT/HCPCS: 36415; 71046-TC-FY; 74018-TC-FY; 74019-TC-FY; 74177-TC; 80048; 80053; 80061; 81003; 83605; 83690; 83721; 83735; 84100; 85025; 85027; 85610; 85730; 86850; 86900; 86901; 87086; 93005; 93010; 99285-25; J0131; J1644; J7030; Q9967